=== PATIENT | female | born 1940 | race Caucasian/White ===

== ENCOUNTER → 2021-12-30 12:31 | Outpatient (BNVA) | payer MEDICARE, SELFPAY | PROVIDERS: PCP Family Medicine; Visit Provider Internal Medicine | DX: M45.9 Ankylosing spondylitis of unspecified sites in spine (principal); L40.9 Psoriasis, unspecified; M16.9 Osteoarthritis of hip, unspecified; M81.0 Age-related osteoporosis without current pathological fracture | CPT/HCPCS: 36415; 72100; 72202; 73560; 80053; 82550; 85025; 85651; 86140; 86160; 86162; 86235; 86255; 86376; 99204 ==

== ENCOUNTER → 2022-02-09 09:22 | Outpatient (BNVA) | payer MEDICARE, SELFPAY | PROVIDERS: PCP Family Medicine; Referring Provider Internal Medicine; Visit Provider Anesthesiology Pain Medicine | DX: M16.10 Unilateral primary osteoarthritis, unspecified hip (principal); M25.551 Pain in right hip; M25.552 Pain in left hip; M79.604 Pain in right leg; M79.605 Pain in left leg | CPT/HCPCS: 99204 ==

== ENCOUNTER → 2022-03-04 13:57 | Outpatient (BNVA) | payer MEDICARE, SELFPAY | PROVIDERS: PCP Family Medicine; Visit Provider Anesthesiology Pain Medicine | DX: M16.12 Unilateral primary osteoarthritis, left hip (principal) | CPT/HCPCS: 20610; 77002; J1030; J3490 ==

== ENCOUNTER → 2022-03-31 11:05 | Outpatient (BNVA) | payer MEDICARE, SELFPAY | PROVIDERS: PCP Family Medicine; Visit Provider Anesthesiology Pain Medicine | DX: M25.551 Pain in right hip (principal); M16.12 Unilateral primary osteoarthritis, left hip; I48.91 Unspecified atrial fibrillation; Z95.0 Presence of cardiac pacemaker; M45.9 Ankylosing spondylitis of unspecified sites in spine; I10 Essential (primary) hypertension | CPT/HCPCS: 99204; 99212 ==

== ENCOUNTER → 2022-05-13 13:15 | Outpatient (BNVA) | payer MEDICARE, SELFPAY | PROVIDERS: PCP Family Medicine; Visit Provider Specialist | DX: M16.12 Unilateral primary osteoarthritis, left hip (principal) | CPT/HCPCS: 73502; 99205 ==

== ENCOUNTER → 2022-06-15 14:27 | Outpatient (BNVA) | payer MEDICARE, SELFPAY | PROVIDERS: PCP Family Medicine; Visit Provider Specialist | DX: M16.12 Unilateral primary osteoarthritis, left hip (principal); Z01.818 Encounter for other preprocedural examination | CPT/HCPCS: 99214 ==

== ENCOUNTER → 2022-06-22 10:24 | Outpatient (BNVA) | payer MEDICARE, SELFPAY | PROVIDERS: PCP Family Medicine; Referring Provider Specialist; Visit Provider Clinical Nurse Specialist Adult Health | DX: Z01.818 Encounter for other preprocedural examination (principal) | CPT/HCPCS: 80053; 85025 ==

== ENCOUNTER 2022-06-24 13:35 | Outpatient (CLI) | payer MEDICARE, SELFPAY | END 2022-06-24 13:36 | disposition home or self-care (01) | LOC: RT 07-01 13:36 | PROVIDERS: PCP Family Medicine; Visit Provider Specialist | DX: Z01.818 Encounter for other preprocedural examination (principal) | CPT/HCPCS: 93005 ==

== ENCOUNTER 2022-06-30 16:42 | Observation (INO) | payer MEDICARE, SELFPAY ==
--- NOTE | 2022-06-24 11:27 | P.ANESASSM_ITS ---
Pre-Anesthetic Assessment Height/Weight: Height 1.7 m Weight 65.771 kg Operation Date: 06/30/22 07:00 Proposed Procedures p LEFT TOTAL HIP ARTHROPLASTY 97416 M16.9(Left) - Selam Masters MD Familial anesthetic complications: None Was Beta Ira taken within 24 hours: Yes Was Clonidine taken within 24 hours: N/A Last intake: > 8hrs Social No alcohol and No tobacco Exam alert, oriented x 3, clear to auscultation bilaterally and regular rate & rhythm Airway Mallampati: Class II Dentition: other (crowns) CV/HEM Atrial Fibrillation, Hypertension and None reported (pacemaker) [facility] [place] ankylosing spondylitis Anesthetic Plan ASA status: 3 Anesthesia: Regional (specify below) (spinal) Risk of > 500 ml blood loss (7ml/kg in children): No Medications/Allergies Home Medications Medication Instructions Recorded Confirmed Last Taken Type acetaminophen 500 mg capsule 500 mg PO Q6H PRN Pain 12/30/21 06/24/22 06/24/22 History hydrochlorothiazide 12.5 mg capsule 12.5 mg PO DAILY 12/30/21 06/24/22 06/24/22 History magnesium oxide 400 mg PO DAILY 12/30/21 06/24/22 06/24/22 History metoprolol succinate 50 mg 50 mg PO DAILY 12/30/21 06/24/22 06/24/22 History tablet,extended release 24 hr piroxicam 20 mg capsule 20 mg PO DAILY 12/30/21 06/24/22 06/24/22 History tizanidine 6 mg capsule 6 mg PO BID PRN Allergic Reaction 12/30/21 06/24/22 Unknown History lisinopril 2.5 mg tablet 5 mg PO DAILY #180 tabs 04/14/22 06/24/22 06/24/22 Rx amlodipine 10 mg tablet 10 mg PO DAILY PRN high blood 06/22/22 06/24/22 06/24/22 History pressure atorvastatin 20 mg tablet 20 mg PO DAILY 06/22/22 06/24/22 06/24/22 History clonidine 0.3 mg/24 hr weekly 1 patch transdermal DAILY 06/22/22 06/24/22 06/24/22 History transdermal patch ([id number]) Allergies Allergy/AdvReac Type Severity Reaction Status Date / Time codeine Allergy Mild ALGY-Rash Verified 06/24/22 10:50 ibuprofen [From Advil] Allergy Mild Unknown Verified 06/24/22 10:50 Penicillins Allergy Mild ALGY-Rash Verified 06/24/22 10:50 ivp dye Allergy Unknown Uncoded 06/22/22 09:47 [facility] Anesthesia Medical History A-fib Ankylosing spondylitis Benign essential HTN Debility Primary osteoarthritis of left hip Surgical History History of partial hysterectomy Hx of appendectomy Hx of cholecystectomy Presence of permanent cardiac pacemaker Family History Father Hypertension Diabetes Mother Hypertension Hyperlipidemia Grandmother Cancer Denies family history of CAD (coronary artery disease) Clotting disorder Dementia Psychiatric illness Chronic kidney disease (CKD) Suicide Anesthesia complication Bleeding disorder Family history of premature coronary artery disease Lung disease Stroke Social History Smoking and tobacco status: never smoked Alcohol intake: never Substance/Drug Use: never Data Anesthesia Cardiac Studies: No Data to Display
--- NOTE | 2022-06-24 11:34 | ECG_ITS ---
[facility] Test Date: 2022-06-24 Pat Name: Billie Chicas Department: Room: Gender: Female Undercover Cop: : 1940 Requested By: Selam Masters Order Number: [id number] Soledad MD: Ajay Davenport M.D. Measurements Intervals [place] Rate: 68 P: 155 NC: 223 QRS: 57 QRSD: 90 T: 48 QT: 393 QTc: 419 Interpretive Statements ELECTRONIC ATRIAL PACEMAKER NONSPECIFIC T-WAVE ABNORMALITY ABNORMAL RHYTHM ECG No previous ECG available for comparison Electronically Signed On 06-24-2022 14:25:52 CDT by Ajay Davenport M.D. [id number]
[2022-06-24 12:58] LABS: Add Urine Microscopic? YES; Bilirubin Urine Neg (Negative); Blood Urine Neg (Negative); Glucose Urine UA Norm (Normal); Ketones Urine Negative (Negative); Leukocyte Esterase Urine 2+ (Negative); Nitrate Urine Positive (Negative); Protein Urine Neg (Negative); Urine Appearance Cloudy (CLEAR); Urine Color Yellow (Yellow); Urobilinogen Urine Neg (Negative); pH Urine 5 (5-7)
[2022-06-24 12:59] LABS: Add Urine Culture? Yes; Bacteria Urine 2+ /hpf; Squamous Epithelial Cell Urine 0-4 /hpf (0-5); WBC Urine >100 /hpf (0-5)
[2022-06-30] VITALS (16 sets, daily range): BP systolic 111–193; BP diastolic 60–81; PULSE 60–95; RESP 10–20; TEMP 36.2–36.8; O2SAT 90–100
[2022-06-30] MEDS: sodium chloride 0.9% 1,000 ML 30 ML IV (12:15)
[2022-06-30] MEDS: CELEcoxib 200 mg Capsule 400 MG PO (12:24)
[2022-06-30] MEDS: gabapentin 300 mg Capsule PO (12:24)
[2022-06-30] MEDS: acetaminophen 1,000 MG/100 ML PIGGYBACK 400 MG IV ×2 (12:29→18:10)
--- NOTE | 2022-06-30 12:39 | P.ANESUD_ITS ---
Pre-Anesthetic Update Pre-Anesthetic Assessment: Date of Surgery/Procedure: 06/30/22 Preop Lennie gnosis: Primary osteoarthritis left hip Proposed Procedure: Operation Date: 06/30/22 13:45 Proposed Procedures p LEFT TOTAL HIP ARTHROPLASTY 56580 M16.9(Left) - Selam Masters MD Any changes to Pre-Anesthetic Assessment?: No Last Intake: Intake Last Liquid Date 06/30/22 Last Liquid Time 06:00 Last Solid Date 06/29/22 Last Solid Time 19:00 Vitals: Temperature 97.7 F 06/30/22 12:08 Temperature Source Temporal Artery S can 06/30/22 12:08 Pulse Rate 60 06/30/22 12:08 Respiratory Rate 18 06/30/22 12:08 Blood Pressure 157/67 06/30/22 12:08 Blood Pressure Megan n 97 06/30/22 12:08 Pulse Oximetry 97 06/30/22 12:08 Oxygen Delivery Me thod Room Air 06/30/22 12:08 Exam: Pre-Anes Outpt Exam: alert, oriented x 3, clear to auscultation bilaterally and regular rate & rhythm Cardiac Studies: No Data to Display
--- NOTE | 2022-06-30 12:41 | P.HPUD_ITS ---
Surgery/Procedure H&P Update DATE OF PROCEDURE: June 30, 2022 DATE H&P PERFORMED: 06/15/22 H&P UPDATE INFORMATION: I have reviewed H&P completed within last 30 days, I have examined patient prior to procedure, No changes to prior documentation and H&P is in [facility] [place] [facility] EMR on date indicated PREOP DIAGNOSIS: Primary osteoarthritis left hip PLANNED PROCEDURE: Operation Date: 06/30/22 13:45 Proposed Procedures p LEFT TOTAL HIP ARTHROPLASTY 58570 M16.9(Left) - Selam Masters MD Related Problem List Diagnoses (1) Primary osteoarthritis of left hip:
[2022-06-30] MEDS: cefTRIAXone 2,000 MG in sodium chloride 0.9% (plus) 50 ML 100 MG IV (12:48)
[2022-06-30] MEDS: ceFAZolin 2,000 MG in sodium chloride 0.9% (plus) 50 ML 100 MG IV ×2 (12:51→18:32)
[2022-06-30 12:54] LABS: Bilirubin Urine Neg (Negative); Blood Urine Neg (Negative); Glucose Urine UA Norm (Normal); Ketones Urine Negative (Negative); Leukocyte Esterase Urine 1+ (Negative); Nitrate Urine Positive (Negative); Protein Urine Neg (Negative); RBC Urine 0-4 /hpf (0-2); Specific Gravity, Urine 1.015 (1.005-1.030); Urine Appearance Cloudy (CLEAR); Urine Color Yellow (Yellow); Urobilinogen Urine Norm (Negative); pH Urine 5 (5-7)
[2022-06-30 12:55] LABS: Add Urine Culture? No; Bacteria Urine 3+ /hpf; Mucus Urine TRACE /hpf; Squamous Epithelial Cell Urine 0-4 /hpf (0-5); WBC Urine 15-25 /hpf (0-5)
--- NOTE | 2022-06-30 13:20 | PC.NURSE ---
patient arrived today for surgery. Talked with Dr. Masters regarding patients urine results during her pre op visit. New orders given to place leon and send urine for UA and Culture. Also given an order to give rocephin in preoop with the already ordered ancef. Placed catheter per mobile battery technician. Patient tolerated well. Sent urine speciman to lab. Dr. Masters talked with patient regarding prior urine results and plan to proceed with surgery.
[2022-06-30] MEDS: ceFAZolin 1,000 mg SDV 1000 MG IRRIGATION (13:54)
[2022-06-30] MEDS: vancomycin 1,000 MG SDV 1000 MG XX (13:54)
--- NOTE | 2022-06-30 16:02 | XRR_ITS ---
PROCEDURE INFORMATION: Exam: XR Pelvis Exam date and time: 06/30/2022 3:07 PM Age: 81 years old Clinical indication: Device placement; Other: Left emily; Prior surgery; Surgery date: Post-operative (0-2 days); Additional info: S/P left emily, low ap pelvis TECHNIQUE: Imaging protocol: Radiologic exam of the pelvis. Views: 1 or 2 view. COMPARISON: CR XR hip LT 2-3V wo/w pel* [id number] 05/13/2022 1:18 PM FINDINGS: Bones/joints: Metallic left hip arthroplasty is present in good position. A no acute bony abnormalities seen. No acute fracture. Soft tissues: Postoperative soft tissue subcutaneous emphysema is seen in the left hip XR/XR pelvis 1-2V* [id number] IMPRESSION: 1. Metallic left hip arthroplasty in good position. 2. Postoperative soft tissue changes left hip 3. Otherwise No acute findings.
--- NOTE | 2022-06-30 16:09 | PC.NURSE ---
Patient awake. LMA removed without incident
--- NOTE | 2022-06-30 16:26 | PC.NURSE ---
patient arrived with patch on chest. stated it was a clonidine patch
--- NOTE | 2022-06-30 16:33 | ANE.PACU2 ---
Inpatient post-anesthesia follow up: Airway intact: Yes Vital signs: Temperature 97.2 F Pulse Rate 83 Respiratory Rate 13 Blood Pressure 183/79 Pulse Oximetry 94 Oxygen Delivery Me thod Room Air Oxygen Flow Rate 8 Fraction of Inspir ed Oxygen Hydration adequate: Yes Nausea and vomiting: No Pain level: 3 Mental status: Baseline
[2022-06-30] MEDS: fentaNYL 50 mcg/mL INJ 2mL IVP (16:35)
[2022-06-30] MEDS: metoprolol tartrate 1 mg/1 mL SDV 5 mL 5 MG IVP (16:36)
--- NOTE | 2022-06-30 16:37 | PM.OP ---
Operative Report Date of procedure: June 30, 2022 Pre-op diagnosis: Severe degenerative osteoarthritis left hip with flexion contracture Post-op diagnosis: Severe degenerative osteoarthritis left hip with flexion and adduction contracture Post-op findings: Severe degenerative osteoarthritis left hip with 45 degree flexion contracture, fixed, and adduction contracture. Cystic changes within the acetabulum and femoral head. Significant shortening of the left lower extremity. Complicated by diagnosis of ankylosing spondylitis Procedure done: Left total hip arthroplasty with adductor tenotomy Implants: The Estimize total hip system with the following implants: A 52 mm by E Trident II solid back acetabular shell, an MDM cementless liner 42 mm inner diameter by E alpha code and Accolade II size 5 with 127 degree neck angle hip stem with a 28 mm outer diameter +0 mm neck offset femoral head and a taoist X3 insert size 42E mm outer diameter by 28 mm inner diameter Pathology: none sent Surgeon: Selam Masters Implementation Specialist Payroll: [facility] operating room technicians Anesthesia: General (LMA, ASA 3 following failed attempt at spinal anesthesia) Estimated blood loss (mL): 250 IV fluids (mL): 1,100 Urine output (mL): 250 Complications: None Findings: Severe flexion contracture and adduction contracture of left hip with inability to extend hip past 45 degrees of flexion and inability to Abduct hip to neutral Condition: stable Disposition: PACU (Then to floor for postoperative rehabilitation and pain management) Brief History: This is a 81 year old female patient here today for evaluation of left total hip arthroplasty. Patient states that the hip has been causing her pain for years. Patient states that she had been on arthritis medication for years when they took her off the medication in 2014.? Initially, she was doing ok; however, three years later she began having increased pain to her groin area. Patient was placed back on the medication (feldene) by Dr. Alonso. Patient states that she feels that the feldene is helping. Patient states she has cracking when she ambulates, and currently, she is using a wheelchair for ambulation. Patient has had injections from Dr. Cuevas and does feel that it helped some. Patient does not walk due to concern of pain and that she would fall. Patient was seen in the office, and after discussion, we elected to proceed with total hip arthroplasty. Risks and complications were discussed with her in detail. Questions were answered and consents were signed. Procedure: Patient was brought to the operating theater.? She was transferred to the operating room table.? The patient had attempted spinal anesthetic with conversion to general anesthetic per LMA, ASA 3.? Following administration of adequate anesthesia, the patient was placed in full lateral position and held in position with a pegboard.? Positioning was very difficult secondary to the patient's flexion contracture and spinal deformity due to her diagnosis of ankylosing spondylitis. The patient's left lower extremity was then prepped and draped in usual fashion utilizing DuraPrep.? It was draped free.? Following prepping and draping, a surgical pause was performed. At the time of surgical pause, we identified the site and side of surgery.? We also identified the patient and preoperative surgical markings.? Confirmation was made of equipment availability.? Additionally, the patient's preoperative IV antibiotic, Ancef 2 g, was confirmed as being given in a timely fashion and being the appropriate antibiotic.? Patient was also given ceftriaxone preoperatively to treat her urine which demonstrated positive leukocyte esterase. Given the patient's physical debility and inability to care for herself, it was felt that we would not be able to clear her urine without IV antibiotics. Discussion was undertaken with the patient and family regarding increased risks associated with proceeding with the surgery, and we elected to proceed. The patient was given TXA preoperatively and will be given an additional dose later this evening. Positioning was very difficult secondary to the patient's ankylosing spondylitis. Also, she had the flexion contracture which did not allow the hip to be extended past 45 degrees of flexion. She had an adduction contracture as well which limited mobility of the hip during the prepping and draping process. Once incision was made and attempts to enter the hip were made, the positioning also was quite difficult secondary to her severe contractures. Following the surgical pause, an incision was made centering over the patient's greater trochanter continuing proximally and distally as necessary to allow access to the hip joint.? Dissection continued through skin and soft tissues using a scalpel, and hemostasis was obtained using electrocautery. The tensor fascia cristino was identified and incised longitudinally.? Sciatic nerve was identified and protected throughout the surgical procedure.? A Charnley U retractor was placed after the tensor fascia cristino had been incised longitudinally, and the sciatic nerve had been identified.? The piriformis muscle was identified and tagged. Piriformis muscle along with the remaining short external rotators were then incised from the posterior aspect of the hip joint. These were retracted posteriorly. ? The capsule was entered in a T-type fashion with the edges being tagged.? The hip was then dislocated. Following hip dislocation, a femoral neck osteotomy was accomplished in the appropriate position. We then evaluated the acetabulum.? We noted we were able to deepen the acetabulum. Following femoral neck osteotomy, the femur was retracted anteriorly.? Soft tissues were retracted and the labrum was removed.? Soft tissues were removed from within the acetabulum prior to the reaming process.? We then began reaming.? We deepened the acetabulum utilizing a smaller reamer.? Evaluation of the acetabulum was accomplished, and we were able to ream to 51 mm to allow for a size 52 mm acetabular shell. There were cystic areas within the acetabulum, and one large cyst superiorly. For this reason, reamings were taken and were reversed reamed into the defects. The acetabular component was impacted into position.?The cup was noted to seat nicely and had good fixation upon impact.? The MDM cementless liner was impacted into position and care was taken to assure that it completely seated.? Attention was directed to the proximal femur.? The proximal femur was lifted out of the wound with difficulty.? A canal finder was passed, and we then used the reamer to lateralize.? We then began broaching. We broached sequentially, and initially, trial reductions were accomplished with a size 5 stem.? Prior to placement of the size 5 stem, calcar reamer was used to resect the proximal calcar.? With the size 5 broach, a trial reduction was accomplished initially with a size -4 mm head offset and a 28 mm outer diameter.? The patient was stable with this construct, but it was felt that as she mobilized soft tissues, this would likely be too loose. Therefore, we placed a +0 mm neck offset femoral head, and it was not felt that we had significantly over tighten the hip. The hip remained tight secondary to the contractures which were present preoperatively. At this time, the decision was also made to proceed with an abductor release. This was to be accomplished after closure of the incision for the total hip. Therefore, trial components were removed after the hip was dislocated.? The size 5 Accolade II 127 degree neck angle hip stem was impacted into position without difficulty and onto this was placed a +0 mm offset by 28 mm outer diameter femoral head inside of the MDM size 42E insert with a 28 mm inner diameter.? With this construct, we had good stability without aggravation of the patient's contractures.? The stem was noted to seat nicely prior to placement of the femoral head.? The wound was copiously irrigated with Betadine.? At this time, with all components in appropriate position, the hip was reduced.? Following reduction of the prosthesis once again, we confirmed the stability of the hip.? It had been noted that there was significant shortening of this lower extremity preoperatively, and it was felt that we had restored some of the length without overtightening the hip. Being satisfied with the prosthesis, attention was directed to closure.? Closure was accomplished with 0 Vicryl in the capsular tissues.? Piriformis was reattached with 0 Vicryl as well.? Tensor fascia cristino was closed with 0 Vicryl in an interrupted fashion.? The subcutaneous tissues were closed with 2 deeper 0 Vicryl suture followed by 2-0 Monocryl.? Vancomycin powder and a Gelfoam thrombin mixture was placed into the wound as well.? The skin was closed with 3-0 Monocryl followed by Dermabond, Prineo, and OpSite.? The patient was placed in an abduction pillow.? She was returned the Recovery Room in a satisfactory condition and will be discharged to the floor for postoperative rehabilitation and pain management.? There were no complications. Related Problem List Diagnoses (1) Primary osteoarthritis of left hip: (2) Flexion contracture of left hip: (3) Debility: (4) Ankylosing spondylitis:
[2022-06-30] MEDS: chlorhexidine gluconate 0.12% Btl 473 mL 30 ML MUCOUS MEM ×2 (18:09→20:33)
[2022-06-30] MEDS: iron polysaccharide complex 150 mg Capsule PO (18:10)
[2022-06-30] MEDS: sennosides-docusate Tablet 2 TAB PO (18:10)
[2022-06-30] MEDS: calcium carbonate 500 mg Chew Tablet 1000 MG PO (18:10)
[2022-06-30] MEDS: mupirocin oint 22 gm 1 APPLIC NASAL (18:11)
[2022-07-01] VITALS (12 sets, daily range): BP systolic 114–190; BP diastolic 58–82; PULSE 61–67; RESP 15–18; TEMP 36.4–36.6; O2SAT 94–100
[2022-07-01] MEDS: acetaminophen 1,000 MG/100 ML PIGGYBACK 400 MG IV ×2 (01:52→09:44)
[2022-07-01] MEDS: oxyCODONE 5 mg IR Tab/Cap PO ×5 (01:55→20:58)
[2022-07-01] MEDS: ceFAZolin 2,000 MG in sodium chloride 0.9% (plus) 50 ML 100 MG IV ×2 (02:32→12:23)
[2022-07-01 05:47] LABS: Basophils % 0.1 %; Eosinophils % 0.1 %; Hematocrit 33.2 % (37.0-47.0); Hemoglobin 10.6 g/dL (11.5-15.3); Lymphocytes # 0.9 10^3/uL (0.8-4.8); Lymphocytes % 6.8 %; Mean Corpuscular HGB Conc 31.9 g/dL (30.0-36.0); Mean Corpuscular Hemoglobin 29.1 pg (28.0-34.0); Mean Corpuscular Volume 91.2 fl (81-99); Monocytes # 1.4 10^3/uL (0.2-0.9); Monocytes % 10.3 %; Neutrophils # 10.97 10^3/uL (1.8-7.7); Neutrophils % 82.3 %; Nucleated Red Blood Cells % 0 %; Platelet Count 290 10^3/cmm (130-400); Red Blood Count 3.64 10^6/uL (4.1-5.3); Red Cell Distribution Width 12.8 % (12.1-15.1); White Blood Count 13.3 10^3/uL (4.0-10.0)
[2022-07-01 06:11] LABS: Anion Gap 12.2 (5-19); Blood Urea Nitrogen 33 mg/dL (8-23); Calcium 9.7 mg/dL (8.5-10.5); Carbon Dioxide 28 mmol/L (22-29); Chloride 103 mmol/L (98-107); Glucose 116 mg/dL (65-115); Osmolality Calculated 296 mOsm/kg (285-295); Potassium 4.2 mmol/L (3.5-5.1); Sodium 139 mmol/L (136-145)
[2022-07-01] MEDS: tizanidine 4 mg Tablet 6 MG PO ×2 (06:18→20:58)
[2022-07-01] MEDS: lisinopril 5 mg Tablet PO (08:31)
[2022-07-01] MEDS: metoprolol succinate ER (24 HR) 50 mg Tablet PO (08:31)
[2022-07-01] MEDS: sennosides-docusate Tablet 2 TAB PO ×2 (08:31→17:06)
[2022-07-01] MEDS: aspirin 325 mg EC Tablet PO (08:31)
[2022-07-01] MEDS: iron polysaccharide complex 150 mg Capsule PO ×2 (08:31→17:06)
[2022-07-01] MEDS: amlodipine 10 mg Tablet PO (08:31)
[2022-07-01] MEDS: atorvastatin 40 mg Tablet 20 MG PO (08:31)
[2022-07-01] MEDS: multivitamin therapeutic Tablet 1 TAB PO (08:31)
[2022-07-01] MEDS: cholecalciferol (vitamin D3) 1,000 unit Tablet 1000 UNIT PO (08:31)
[2022-07-01] MEDS: calcium carbonate 500 mg Chew Tablet 1000 MG PO ×2 (08:31→17:06)
[2022-07-01] MEDS: hydroCHLOROthiazide 25 mg Tablet 12.5 MG PO (08:32)
[2022-07-01] MEDS: mupirocin oint 22 gm 1 APPLIC NASAL ×2 (09:44→17:09)
[2022-07-01] MEDS: chlorhexidine gluconate 0.12% Btl 473 mL 30 ML MUCOUS MEM ×3 (09:44→20:52)
[2022-07-01] MEDS: cloNIDine 0.3 mg/24 hr Patch 1 PATCH TRANSDERMA (12:24)
--- NOTE | 2022-07-01 13:29 | PM.PN ---
Subjective Subjective: The patient is up in a chair in her room. She is doing well without complaints. She notes her pain is not significantly different than it was preoperatively. Medications: Reviewed: Yes Vitals/I&O/Wt Last Vital Signs Temp 97.7 F 07/01/22 07:41 Pulse 67 07/01/22 12:24 Resp 18 07/01/22 12:23 BP 145/74 07/01/22 12:24 Pulse Ox 94 07/01/22 11:27 O2 Del Method Room Air 07/01/22 11:27 O2 Flow Rate 2 07/01/22 04:00 06/30/22 07/01/22 07/01/22 22:59 06:59 14:59 Intake Total 2700 / 2910 390 / 3300 220 / 220 Output Total 1050 / 1050 375 / 1425 Balance 1650 / 1860 15 / 1875 220 / 220 Physical Exam Const: COMMON NORMALS: no acute distress, average body habitus, patient oriented x3 and alert GENERAL APPEARANCE: cooperative and comfortable ORIENTATION/CONSCIOUSNESS: Yes awake HENMT: COMMON NORMALS: normocephalic and atraumatic HEAD & SCALP: normocephalic and atraumatic Eye: GENERAL EYE: appearance normal, both eyes and all related structures Chest: COMMONS NORMALS: normal inspection of the chest Resp: COMMON NORMALS: normal respiratory effort EFFORT & INSPECTION: Yes able to speak in complete sentences and Yes symmetric chest movement Extremity: LEFT LOWER EXTREMITY: Yes hip joint (Dressing is dry and intact.) Left hip: Yes other (No evidence of DVT.) Neuro: COMMON NORMALS: patient oriented x3 SENSORIUM/ORIENTATION: Yes alert Psych: COMMON NORMALS: mental status grossly normal APPEARANCE: Yes grossly normal ATTITUDE: Yes calm and Yes engaged ATTENTION/CONCENTRATION: Yes attention grossly intact Skin: COMMON NORMALS: no rashes or lesions noted GENERAL SKIN EXAM: no rashes or lesions noted Urinary Catheter Management: Spivey: Cath Placed During This Visit: yes, but has since been removed by the nurse Reason for Continuing Indwelling Catheter: Decision to DC Catheter Date Urinary Catheter Removed: 07/01/22 Time Urinary Catheter Discontinued: 06:27 Data 07/01/22 05:01 07/01/22 05:01 Micro: Microbiology 06/30/22 12:00 Urine Culture - Preliminary Urine Catheterized Gram Negative Rods A&P Assessment and plan (1) Status post total hip replacement, left: Patient is doing well following total hip arthroplasty, but due to her ankylosing spondylitis as well as her severe disability prior to her hip replacement, she will require extended hospital stay as well as prison. Patient is doing well and is up in a chair. She notes pain level is about the same as it was preoperatively. She has been using a wheelchair as she was unable to ambulate at all. At the time of surgery, she had significant flexion contracture of the hip which was not correctable even when the patient was asleep. She also had significant adduction contracture. Patient is agreeable to discharge to prison. We will await approval from insurance. Additionally, patient has gram-negative rods from her urine culture, we will place her on Bactrim. (2) Primary osteoarthritis of left hip: (3) Debility: (4) Ankylosing spondylitis: Attestations Medical Necessity Statement*: Patient remains in hospital following total hip arthroplasty for postoperative rehabilitation. She will require extended stay secondary to preoperative status with significant debility. Coding Level of Care Code Acute Code for Chg Fwd Diagnoses Status post total hip replacement, left Z96.642 Primary osteoarthritis of left hip M16.12 Debility R53.81 Ankylosing spondylitis M45.9
[2022-07-01] MEDS: acetaminophen 500 mg Tablet 1000 MG PO (17:05)
[2022-07-02] VITALS (11 sets, daily range): BP systolic 110–170; BP diastolic 58–70; PULSE 61–76; RESP 16–19; TEMP 36.4–37.1; O2SAT 91–96
[2022-07-02] MEDS: oxyCODONE 5 mg IR Tab/Cap PO ×4 (04:43→20:16)
[2022-07-02] MEDS: calcium carbonate 500 mg Chew Tablet 1000 MG PO ×2 (08:00→17:33)
[2022-07-02] MEDS: metoprolol succinate ER (24 HR) 50 mg Tablet PO (08:01)
[2022-07-02] MEDS: hydroCHLOROthiazide 25 mg Tablet 12.5 MG PO (08:01)
[2022-07-02] MEDS: cholecalciferol (vitamin D3) 1,000 unit Tablet 1000 UNIT PO (08:01)
[2022-07-02] MEDS: lisinopril 5 mg Tablet PO (08:01)
[2022-07-02] MEDS: sennosides-docusate Tablet 2 TAB PO ×2 (08:01→17:33)
[2022-07-02] MEDS: iron polysaccharide complex 150 mg Capsule PO ×2 (08:02→17:33)
[2022-07-02] MEDS: amlodipine 10 mg Tablet PO (08:02)
[2022-07-02] MEDS: acetaminophen 500 mg Tablet 1000 MG PO ×2 (08:02→17:41)
[2022-07-02] MEDS: multivitamin therapeutic Tablet 1 TAB PO (08:03)
[2022-07-02] MEDS: atorvastatin 40 mg Tablet 20 MG PO (08:19)
[2022-07-02] MEDS: aspirin 325 mg EC Tablet PO (08:19)
[2022-07-02] MEDS: mupirocin oint 22 gm 1 APPLIC NASAL ×2 (08:20→17:34)
[2022-07-02] MEDS: chlorhexidine gluconate 0.12% Btl 473 mL 30 ML MUCOUS MEM ×4 (08:20→20:19)
[2022-07-02] MEDS: cloNIDine 0.3 mg/24 hr Patch 1 PATCH TRANSDERMA (10:14)
[2022-07-02] MEDS: sulfamethoxazole-trimeth DS 160-800 mg Tablet 1 TAB PO ×2 (10:15→17:33)
--- NOTE | 2022-07-02 18:44 | P.PN_ITS ---
Subjective Subjective: The patient is seen in her room. She has been getting up with physical therapy and is doing quite well. She is still requiring assistance, and will require long-term at the time of discharge. She is interested in [facility]. Medications: Reviewed: Yes Vitals/I&O/Wt Last Vital Signs Temp 97.8 F 07/02/22 15:52 Pulse 70 07/02/22 15:52 Resp 18 07/02/22 15:52 BP 160/62 07/02/22 15:52 Pulse Ox 91 07/02/22 15:52 O2 Del Method Room Air 07/02/22 15:52 O2 Flow Rate 2 07/01/22 20:00 07/02/22 07/02/22 07/02/22 06:59 14:59 22:59 Intake Total 120 / 990 960 / 960 480 / 1440 Balance 120 / 990 960 / 960 480 / 1440 Physical Exam Const: COMMON NORMALS: no acute distress, patient oriented x3 and alert; limitations (Spinal issues secondary to ankylosing spondylitis) GENERAL APPEARANCE: cooperative and comfortable ORIENTATION/CONSCIOUSNESS: Yes awake HENMT: COMMON NORMALS: normocephalic and atraumatic HEAD & SCALP: normocephalic and atraumatic Eye: GENERAL EYE: appearance normal, both eyes and all related structures Resp: COMMON NORMALS: normal respiratory effort EFFORT & INSPECTION: Yes able to speak in complete sentences and Yes symmetric chest movement Extremity: LEFT LOWER EXTREMITY: Yes hip joint (Dressing is dry and intact with no swelling) Left hip: Yes palpation (No tenderness), Yes ROM (Not evaluated) and Yes neurovascular exam (Intact with no evidence of DVT) Neuro: COMMON NORMALS: patient oriented x3 SENSORIUM/ORIENTATION: Yes alert Psych: COMMON NORMALS: mental status grossly normal APPEARANCE: Yes grossly normal ATTITUDE: Yes calm and Yes engaged ATTENTION/CONCENTRATION: Yes attention grossly intact Skin: COMMON NORMALS: no rashes or lesions noted GENERAL SKIN EXAM: no rashes or lesions noted Urinary Catheter Management: Spivey: Cath Placed During This Visit: yes, but has since been removed by the nurse Reason for Continuing Indwelling Catheter: Decision to DC Catheter Date Urinary Catheter Removed: 07/01/22 Time Urinary Catheter Discontinued: 06:27 Data 07/01/22 05:01 07/01/22 05:01 A&P Assessment and plan (1) Status post total hip replacement, left: Patient is doing well following total hip arthroplasty, but due to her ankylosing spondylitis as well as her severe disability prior to her hip replacement, she has required extended hospital stay as well as long-term at time of discharge from the hospital. Patient is doing well and is up in a chair. She has been working with physical therapy, and they are working on ambulation. She notes pain level is about the same as it was preoperatively. She has been using a wheelchair as she was unable to ambulate at all. At the time of surgery, she had significant flexion contracture of the hip which was not correctable even when the patient was asleep. She also had significant adduction contracture. Patient is agreeable to discharge to long-term. We will await approval from insurance. Additionally, patient has gram-negative rods from her urine culture, we will place her on Bactrim. (2) Primary osteoarthritis of left hip: (3) Debility: (4) Ankylosing spondylitis: Attestations Medical Necessity Statement*: Patient requires ongoing inpatient care following left total hip arthroplasty due to medical comorbidities such as ankylosing spondylitis and significant deconditioning Coding Level of Care Code Acute Code for Chg Fwd Diagnoses Status post total hip replacement, left Z96.642 Primary osteoarthritis of left hip M16.12 Debility R53.81 Ankylosing spondylitis M45.9
[2022-07-02] MEDS: tizanidine 4 mg Tablet 6 MG PO (20:16)
[2022-07-03] VITALS: BP 108/74; PULSE 80; RESP 16; TEMP 36.9; O2SAT 97
[2022-07-03] MEDS: acetaminophen 500 mg Tablet 1000 MG PO ×2 (03:32→09:33)
[2022-07-03 05:02] VITALS: BP 186/67; PULSE 65; RESP 18; TEMP 37.1; O2SAT 94
[2022-07-03 08:00] VITALS: BP 152/75; PULSE 63; RESP 16; TEMP 36.8; O2SAT 94
[2022-07-03] MEDS: calcium carbonate 500 mg Chew Tablet 1000 MG PO (08:04)
[2022-07-03] MEDS: sennosides-docusate Tablet 2 TAB PO (08:04)
[2022-07-03] MEDS: lisinopril 5 mg Tablet PO (08:04)
[2022-07-03] MEDS: amlodipine 10 mg Tablet PO (08:04)
[2022-07-03] MEDS: cholecalciferol (vitamin D3) 1,000 unit Tablet 1000 UNIT PO (08:04)
[2022-07-03] MEDS: aspirin 325 mg EC Tablet PO (08:04)
[2022-07-03] MEDS: sulfamethoxazole-trimeth DS 160-800 mg Tablet 1 TAB PO (08:04)
[2022-07-03 08:05] VITALS: RESP 18
[2022-07-03] MEDS: metoprolol succinate ER (24 HR) 50 mg Tablet PO (08:05)
[2022-07-03] MEDS: oxyCODONE 5 mg IR Tab/Cap PO (08:05)
[2022-07-03] MEDS: iron polysaccharide complex 150 mg Capsule PO (08:05)
[2022-07-03] MEDS: hydroCHLOROthiazide 25 mg Tablet 12.5 MG PO (08:07)
[2022-07-03] MEDS: atorvastatin 40 mg Tablet 20 MG PO (08:07)
[2022-07-03] MEDS: chlorhexidine gluconate 0.12% Btl 473 mL 30 ML MUCOUS MEM (08:08)
[2022-07-03] MEDS: mupirocin oint 22 gm 1 APPLIC NASAL (08:08)
[2022-07-03] MEDS: multivitamin therapeutic Tablet 1 TAB PO (08:18)
[2022-07-03] MEDS: cloNIDine 0.3 mg/24 hr Patch 1 PATCH TRANSDERMA (09:33)
[2022-07-03 11:27] LABS: SARS Covid-2 Antigen Negative (Negative)
[2022-07-03 11:32] VITALS: BP 142/85; PULSE 62; RESP 16; TEMP 37.3; O2SAT 95
--- NOTE | 2022-07-03 14:46 | PM.OP ---
Operative Report Date of procedure: July 03, 2022 Pre-op diagnosis: Preop Diagnosis Primary osteoarthritis left hip Severe degenerative osteoarthritis left hip with flexion contracture
--- NOTE | 2022-07-03 14:47 | PM.DCS ---
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 Cystic changes within the acetabulum and femoral head. Significant shortening of the left lower extremity. Complicated by diagnosis of ankylosing spondylitis Procedure done: Left total hip arthroplasty with adductor tenotomy Implants: The [employer] total hip system with the following implants: A 52 mm by E Trident II solid back acetabular shell, an MDM cementless liner 42 mm inner diameter by E alpha code and Accolade II size 5 with 127 degree neck angle hip stem with a 28 mm outer diameter +0 mm neck offset femoral head and a sikhism X3 insert size 42E mm outer diameter by 28 mm inner diameter (2) Primary osteoarthritis of left hip: Status: Acute (3) Debility: Status: Acute (4) Ankylosing spondylitis: Status: Acute Reason for Visit Reason for Visit: M16.7, 58791 Brief History: This is a 81 year old female patient who presented to the hospital for left total hip arthroplasty. Patient states that the hip has been causing her pain for years. Patient states that she had been on arthritis medication for years, but they took her off the medication in 2014.? Initially, she was doing ok; however, three years later she began having increased pain to her groin area. Patient was placed back on the medication (feldene) by Dr. Alonso. Patient states that she feels that the feldene is helping. Patient states she has cracking when she ambulates, and currently, she is using a wheelchair for ambulation. Patient has had injections from Dr. Cuevas and does feel that it helped some. Patient does not walk due to concern of pain and that she would fall.? Patient was seen in the office, and after discussion, we elected to proceed with total hip arthroplasty.? Risks and complications were discussed with her in detail.? Questions were answered and consents were signed. Hospital Course Hospital Course The patient was admitted to the hospital on June 30, 2022 following same-day surgery for left total hip arthroplasty. Her medical situation was significantly compromised and complex secondary to her diagnosis of ankylosing spondylitis and her inability recently to ambulate at all. The patient also had a fixed flexion contracture of the left hip and significant debility secondary to her inability to ambulate and use of a walker over the past extended period of time. Patient presented initially with bacteria in her urine, but she was treated with ceftriaxone and hospital prior to her surgical procedure as it was felt that we would not be able to clear up the urinary tract infection secondary to the severe flexion and adduction contracture of this hip. Patient was educated as to this concern. Postoperatively, she required inpatient services and subsequently intermediate services secondary to her complex rehabilitation problems. On the day of discharge, she was doing well. She was sitting in a chair. She was excited to be going to intermediate for ongoing improvement. Bactrim will be continued while in intermediate for 14 days. Dressing is to remain intact unless it becomes soiled or there is drainage. She is to follow posterior hip precautions. Physical Exam Const: COMMON NORMALS: no acute distress, patient oriented x3 and alert; limitations (Spinal issues secondary to ankylosing spondylitis) GENERAL APPEARANCE: cooperative and comfortable ORIENTATION/CONSCIOUSNESS: Yes awake HENMT: COMMON NORMALS: normocephalic and atraumatic HEAD & SCALP: normocephalic and atraumatic Eye: GENERAL EYE: appearance normal, both eyes and all related structures Chest: COMMONS NORMALS: normal inspection of the chest Resp: COMMON NORMALS: normal respiratory effort EFFORT & INSPECTION: Yes able to speak in complete sentences and Yes symmetric chest movement Extremity: LEFT LOWER EXTREMITY: Yes hip joint (Dressing is dry and intact and is left in place.) Left hip: Yes neurovascular exam (Intact distally.) Neuro: COMMON NORMALS: patient oriented x3 SENSORIUM/ORIENTATION: Yes alert Psych: COMMON NORMALS: mental status grossly normal APPEARANCE: Yes grossly normal ATTITUDE: Yes calm and Yes engaged ATTENTION/CONCENTRATION: Yes attention grossly intact Skin: COMMON NORMALS: no rashes or lesions noted GENERAL SKIN EXAM: no rashes or lesions noted Urinary Catheter Management: Spivey: Cath Placed During This Visit: yes, but has since been removed by the nurse Reason for Continuing Indwelling Catheter: Decision to DC Catheter Date Urinary Catheter Removed: 07/01/22 Time Urinary Catheter Discontinued: 06:27 Discharge Data Studies Completed and Pending Completed Studies During Hospitalization Category Date Time Status XR pelvis 1-2V* [id number] Routine Exams 06/30/22 16:02 Completed Radiology Impressions Pelvis X-Ray 06/30/22 16:02 IMPRESSION: 1. Metallic left hip arthroplasty in good position. 2. Postoperative soft tissue changes left hip 3. Otherwise No acute findings. Laboratory Results WBC 13.3 10^3/uL (4.0-10.0) H 07/01/22 05:01 RBC 3.64 10^6/uL (4.1-5.3) L 07/01/22 05:01 Hgb 10.6 g/dL (11.5-15.3) L 07/01/22 05:01 Hct 33.2 % (37.0-47.0) L 07/01/22 05:01 MCV 91.2 fl (81-99) 07/01/22 05:01 MCH 29.1 pg (28.0-34.0) 07/01/22 05:01 MCHC 31.9 g/dL (30.0-36.0) 07/01/22 05:01 RDW 12.8 % (12.1-15.1) 07/01/22 05:01 Plt Count 290 10^3/cmm (130-400) 07/01/22 05:01 MPV 10.0 fL (7.4-10.4) 07/01/22 05:01 Neut % (Auto) 82.3 % 07/01/22 05:01 Lymph % (Auto) 6.8 % 07/01/22 05:01 [place] % (Auto) 10.3 % 07/01/22 05:01 Eos % (Auto) 0.1 % 07/01/22 05:01 Baso % (Auto) 0.1 % 07/01/22 05:01 Neut # (Auto) 10.97 10^3/uL (1.8-7.7) H 07/01/22 05:01 Lymph # (Auto) 0.9 10^3/uL (0.8-4.8) 07/01/22 05:01 [place] # (Auto) 1.4 10^3/uL (0.2-0.9) H 07/01/22 05:01 Eos # (Auto) 0.0 10^3/uL (0.0-0.8) 07/01/22 05:01 Baso # (Auto) 0.0 10^3/uL (0.0-0.1) 07/01/22 05:01 Nucleated RBC % (auto) 0 % 07/01/22 05:01 Nucleated RBCs # 0.0 /100WBC 07/01/22 05:01 Sodium 139 mmol/L (136-145) 07/01/22 05:01 Potassium 4.2 mmol/L (3.5-5.1) 07/01/22 05:01 Chloride 103 mmol/L (98-107) 07/01/22 05:01 Carbon Dioxide 28 mmol/L (22-29) 07/01/22 05:01 Anion Gap 12.2 (5-19) 07/01/22 05:01 BUN 33 mg/dL (8-23) H 07/01/22 05:01 Creatinine 1.2 mg/dL (0.5-0.9) H 07/01/22 05:01 GFR Calculation Not Reportable 07/01/22 05:01 Glucose 116 mg/dL (65-115) H 07/01/22 05:01 Calculated Osmolality 296 mOsm/kg (285-295) H 07/01/22 05:01 Calcium 9.7 mg/dL (8.5-10.5) 07/01/22 05:01 Urine Color Yellow (Yellow) 06/30/22 12:00 Urine Appearance Cloudy (CLEAR) A 06/30/22 12:00 Urine pH 5 (5-7) 06/30/22 12:00 Ur Specific [place] 1.015 (1.005-1.030) 06/30/22 12:00 Urine Protein Neg (Negative) 06/30/22 12:00 Urine Glucose (UA) Norm (Normal) 06/30/22 12:00 Urine Ketones Negative (Negative) 06/30/22 12:00 Urine Blood Neg (Negative) 06/30/22 12:00 Urine Nitrate Positive (Negative) H 06/30/22 12:00 Urine Bilirubin Neg (Negative) 06/30/22 12:00 Urine Urobilinogen Norm mg/dL (Negative) 06/30/22 12:00 Ur Leukocyte Esterase 1+ (Negative) H 06/30/22 12:00 Urine RBC 0-4 /hpf (0-2) H 06/30/22 12:00 Urine WBC 15-25 /hpf (0-5) H 06/30/22 12:00 Ur Squamous Epith Cells 0-4 /hpf (0-5) H 06/30/22 12:00 Amorphous Sediment Not Reportable 06/30/22 12:00 Urine Bacteria 3+ /hpf (NONE) H 06/30/22 12:00 Urine Mucus Trace /hpf 06/30/22 12:00 SARS-CoV-2 Ag (Rapid) Negative (Negative) 07/03/22 10:50 Vitals Last Vital Signs Temp 99.1 F 07/03/22 11:32 Pulse 62 07/03/22 11:32 Resp 16 07/03/22 11:32 BP 142/85 07/03/22 11:32 Pulse Ox 95 07/03/22 11:32 O2 Del Method Room Air 07/02/22 15:52 O2 Flow Rate 2 07/03/22 08:00 Discharge Plan Discharge Patient Disposition: Xfer SNF Condition: Stable Prescriptions: New acetaminophen 500 mg Tablet 1,000 mg PO Q8H 15 Days Qty: 90 0RF aspirin 325 mg Tablet,Delayed Release (Dr/Ec) 325 mg PO DAILY 30 Days Qty: 30 0RF oxycodone 5 mg Tablet 5 mg PO Q4H PRN (Reason: Moderate Pain) 7 Days Qty: 30 0RF sulfamethoxazole-trimethoprim [Bactrim DS] 800-160 mg tablet 1 tab PO BID 14 Days Qty: 28 0RF Continued acetaminophen 500 mg capsule 500 mg PO Q6H PRN (Reason: Pain) tizanidine 6 mg capsule 6 mg PO BID PRN (Reason: Allergic Reaction) hydrochlorothiazide 12.5 mg capsule 12.5 mg PO DAILY metoprolol succinate 50 mg tablet extended release 24 hr 50 mg PO DAILY piroxicam 20 mg capsule 20 mg PO DAILY magnesium oxide 400 mg magnesium capsule 400 mg PO DAILY amlodipine 10 mg tablet 10 mg PO DAILY PRN (Reason: high blood pressure) atorvastatin 20 mg tablet 20 mg PO DAILY clonidine [[id number]] 0.3 mg/24 hr patch weekly 1 patch transdermal DAILY lisinopril 10 mg tablet 10 mg PO DAILY hydralazine 25 mg tablet 25 mg PO Q8H Discharge Orders: Discharge Order (Routine); Ordered 07/03/22 Ordered By: Selam Masters Referrals: Selam Masters MD [Physician] - 07/14/22 9:15 am Discharge Diet: Advance as tolerated and Usual diet Discharge Activity: Increase activity as tolerated, Limit activity as instructed, Use walker/crutches as instructed and As per PT/OT instructions Patient Instructions: Oxycodone/Acetaminophen (By mouth), Aspirin (By mouth), Total Hip Replacement (GEN) Activity Restrictions/Additional Instructions: Posterior hip precautions, left hip. May ambulate weight-bear as tolerated. Physical therapy for range of motion, gait training, and strengthening. Please maintain surgical dressing until follow up appointment unless dressing becomes soiled, then change as needed. Discharge Attestations Time Spent in Discharge Care*: greater than 30 min Specific Discharge Activities: educating patient, documenting/other paperwork and evaluating patient/reviewing data Quality Metrics Clinical Quality Measures [ No reported AMI, CVA or VTE this stay] Coding Level of Care Code Acute Code for Chg Fwd Diagnoses Status post total hip replacement, left Z96.642 Primary osteoarthritis of left hip M16.12 Debility R53.81 Ankylosing spondylitis M45.9
--- NOTE | 2022-07-03 14:48 | PC.NURSE ---
Called [facility] and gave report to Kaylee at [phone].
[2022-07-03 14:49] VITALS: BP 142/85; PULSE 62; RESP 16; TEMP 37.3; O2SAT 95
--- NOTE | 2022-07-03 14:50 | PC.NURSE ---
Discharge Note Patient discharged to [facility] via [facility] transportation accompanied by [facility] personnel. Discharge instructions reviewed with patient and/or national account representative. Mobile pharmacy medications and/or prescriptions provided. Belongings/home medications returned.
== END 2022-07-03 15:53 | disposition skilled nursing facility (03) ==
LOC: MEDSURG 16:57
PROVIDERS: Admitting Provider Specialist; PCP Family Medicine; Visit Provider Specialist
PROC: (CPT 27130; principal; 2022-06-30 13:45)
DX: M16.12 Unilateral primary osteoarthritis, left hip (principal); M45.9 Ankylosing spondylitis of unspecified sites in spine; Z99.3 Dependence on wheelchair; M24.552 Contracture, left hip; I48.91 Unspecified atrial fibrillation; I10 Essential (primary) hypertension; Z95.0 Presence of cardiac pacemaker; Z79.899 Other long term (current) drug therapy
CPT/HCPCS: 27130; 51702; 72170; 80048; 81001; 85025; 87077; 87086; 87186; 87426; 97110; 97116; 97161; 97167; 97530; 97535; C1776; G0378; J0131; J0690; J0696; J1100; J1170; J2405; J2704; J3010; J3370; J3490; J7030

== ENCOUNTER → 2022-07-14 09:33 | Outpatient (BNVA) | payer MEDICARE, SELFPAY | PROVIDERS: PCP Family Medicine; Visit Provider Nurse Practitioner Family | DX: Z96.642 Presence of left artificial hip joint (principal) | CPT/HCPCS: 73502; 99024 ==

== ENCOUNTER → 2022-08-14 11:39 | Outpatient (BNVA) | payer MEDICARE, SELFPAY | PROVIDERS: PCP Family Medicine; Visit Provider Nurse Practitioner Family | DX: Z96.642 Presence of left artificial hip joint (principal) | CPT/HCPCS: 73502; 99024; 99213 ==

== ENCOUNTER 2022-08-23 20:00 | Emergency (ER) | payer MEDICARE, SELFPAY ==
[2022-08-23 20:08] VITALS: BP 148/77; PULSE 95; RESP 16; TEMP 37.3; O2SAT 95; BMI 22.7
[2022-08-23 21:32] LABS: Basophils # 0.1 10^3/uL (0.0-0.1); Basophils % 0.5 %; Eosinophils # 0.1 10^3/uL (0.0-0.8); Eosinophils % 0.5 %; Hematocrit 40.7 % (37.0-47.0); Hemoglobin 12.7 g/dL (11.5-15.3); Lymphocytes # 1.3 10^3/uL (0.8-4.8); Lymphocytes % 10.7 %; Mean Corpuscular HGB Conc 31.2 g/dL (30.0-36.0); Mean Corpuscular Hemoglobin 27.9 pg (28.0-34.0); Mean Corpuscular Volume 89.3 fl (81-99); Mean Platelet Volume 9.6 fL (7.4-10.4); Monocytes % 7.8 %; Neutrophils % 80.1 %; Nucleated Red Blood Cells % 0 %; Platelet Count 441 10^3/cmm (130-400); Red Blood Count 4.56 10^6/uL (4.1-5.3); Red Cell Distribution Width 13.1 % (12.1-15.1); White Blood Count 12.5 10^3/uL (4.0-10.0)
--- NOTE | 2022-08-23 21:40 | W.ED.NAVMDI ---
HPI - Nausea/Vomiting/Diarrhea General: Chief complaint: Nausea/Vomiting/Diarrhea Stated complaint: Diah\V\N\ABD Pain Time Seen by Provider: 08/23/22 21:35 History of Present Illness: 81-year-old female comes in today for complaints of diarrhea for the last 6 months. Patient appears nontoxic. Patient feels that the diarrhea is secondary to her ankylosing spondylitis. Patient reports no increased pain or difficulty. Patient is alert and oriented. Patient at this time is for cousin on her property in a cabin. Associated symtoms: Denies chest pain Review of Systems General: Reports: 10 or more systems reviewed and unremarkable except in HPI and below Card: Denies: chest pain Resp: Denies: dyspnea GI: Reports: diarrhea : Reports: difficulty voiding PFSH ED PFSH: Medical History A-fib Ankylosing spondylitis Benign essential HTN Debility Primary osteoarthritis of left hip Surgical History History of partial hysterectomy Hx of appendectomy Hx of cholecystectomy Presence of permanent cardiac pacemaker Family History Father Hypertension Diabetes Mother Hypertension Hyperlipidemia Grandmother Cancer Denies family history of CAD (coronary artery disease) Clotting disorder Dementia Psychiatric illness Chronic kidney disease (CKD) Suicide Anesthesia complication Bleeding disorder Family history of premature coronary artery disease Lung disease Stroke Social History Smoking and tobacco status: never smoked Alcohol intake: never Substance/Drug Use: never Physical Exam Const: COMMON NORMALS: alert HENMT: COMMON NORMALS: normocephalic HEAD & SCALP: normocephalic Neck/C-Spine: COMMON NORMALS: full ROM Resp: COMMON NORMALS: normal respiratory effort and clear to auscultation bilaterally AUSCULTATION: clear to auscultation bilaterally Cardio: COMMON NORMALS: regular rate and regular rhythm RATE: regular rate RHYTHM: regular rhythm GI: AUSCULTATION: Yes normoactive bowel sounds PALPATION: No Tenderness to palpation present (GI) Extremity: COMMON NORMALS: normal to inspection NARRATIVE EXTREMITY EXAM: Well-healed wound to the left hip area Neuro: SENSORIUM/ORIENTATION: Yes alert Course Vital Signs: Vital signs: Vital Signs Temperature 99.2 F 07/02/23 20:08 Pulse Rate 95 08/23/22 20:08 Respiratory Rate 16 08/23/22 20:08 Blood Pressure 148/77 08/23/22 20:08 Pulse Oximetry 95 08/23/22 20:08 Oxygen Delivery Me thod Room Air 08/23/22 20:08 MDM - Nausea/Vomiting/Diarrhea Medical Decision Making 81-year-old female was brought in by her cousin for concerns of persistent diarrhea for the last 6 months. Patient appears nontoxic. Abdomen soft nontender. Bowel sounds are present. Skin is warm and dry. Vital signs are normal. Differential diagnosis includes but not limited to functional diarrhea, colitis, dehydration, complication secondary to ankylosing spondylitis. Reviewed exam with patient and family with recommendations for treatment of diarrhea with addition of Metamucil and a trial of steroids to rule out her ankylosing spondylitis cause. Patient reported understanding of care plan and agreed to follow-up with primary care for further evaluation and consideration of colonoscopy. Laboratory values were unremarkable. An KUB showed no signs of bowel obstruction. Lab Data 08/23/22 21:25 08/23/22 21:25 Laboratory Results WBC 12.5 10^3/uL (4.0-10.0) H 08/23/22 21: RBC 4.56 10^6/uL (4.1-5.3) 08/23/22 21:25 Hgb 12.7 g/dL (11.5-15.3) 08/23/22 21:25 Hct 40.7 % (37.0-47.0) 08/23/22 21: MCV 89.3 fl (81-99) 08/23/22 21:25 MCH 27.9 pg (28.0-34.0) L 08/23/22 21: MCHC 31.2 g/dL (30.0-36.0) 08/23/22 21: RDW 13.1 % (12.1-15.1) 08/23/22 21: Plt Count 441 10^3/cmm (130-400) H 08/23/22 21:25 MPV 9.6 fL (7.4-10.4) 08/23/22 21:25 Neut % (Auto) 80.1 % 08/23/22 21:25 Lymph % (Auto) 10.7 % 08/23/22 21:25 [place] % (Auto) 7.8 % 08/23/22 21:25 Eos % (Auto) 0.5 % 08/23/22 21:25 Baso % (Auto) 0.5 % 08/23/22 21:25 Neut # (Auto) 10.00 10^3/uL (1.8-7.7) H 08/23/22 21:25 Lymph # (Auto) 1.3 10^3/uL (0.8-4.8) 08/23/22 21:25 [place] # (Auto) 1.0 10^3/uL (0.2-0.9) H 08/23/22 21:25 Eos # (Auto) 0.1 10^3/uL (0.0-0.8) 08/23/22 21:25 Baso # (Auto) 0.1 10^3/uL (0.0-0.1) 08/23/22 21:25 Nucleated RBC % (auto) 0 % 08/23/22 21:25 Nucleated RBCs # 0.0 /100WBC 08/23/22 21:25 Sodium 138 mmol/L (136-145) 08/23/22 21:25 Potassium 3.7 mmol/L (3.5-5.1) 08/23/22 21:25 Chloride 97 mmol/L (98-107) L 08/23/22 21:25 Carbon Dioxide 30 mmol/L (22-29) H 08/23/22 21:25 Anion Gap 14.7 (5-19) 08/23/22 21:25 BUN 24 mg/dL (8-23) H 08/23/22 21:25 Creatinine 1.1 mg/dL (0.5-0.9) H 08/23/22 21:25 GFR Calculation Not Reportable 08/23/22 21:25 Glucose 150 mg/dL (65-115) H 08/23/22 21:25 Calculated Osmolality 293 mOsm/kg (285-295) 08/23/22 21:25 Calcium 10.6 mg/dL (8.5-10.5) H 08/23/22 21:25 Total Bilirubin 0.5 mg/dL (0.15-1.2) 07/02/23 21:25 AST 16 U/L (0-32) 08/23/22 21:25 ALT 9 U/L (0-33) 08/23/22 21:25 Alkaline Phosphatase 82 U/L (35-105) 08/23/22 21:25 Total Protein 7.3 g/dL (6.6-8.7) 08/23/22 21:25 Albumin 4.1 g/dL (3.5-5.2) 08/23/22 21:25 Globulin 3.2 g/dL (1.3-4.6) 08/23/22 21:25 Lipase 8 U/L (13-60) L 08/23/22 21:25 Discharge Plan Discharge Patient Disposition: Home Clinical Impression: Diarrhea Qualifiers: Diarrhea type: unspecified type Qualified Code(s): R19.7 - Diarrhea, unspecified Ankylosing spondylitis Qualifiers: Ankylosing spondylitis location: multiple sites in spine Qualified Code(s): M45.0 - Ankylosing spondylitis of multiple sites in spine Condition: Stable Prescriptions: New prednisone 20 mg tablet 20 mg PO BID 10 Days Qty: 20 0RF diphenoxylate-atropine 2.5-0.025 mg tablet 1 tab PO BID PRN (Reason: diarrhea) Qty: 10 0RF No Action acetaminophen 500 mg capsule 500 mg PO Q6H PRN (Reason: Pain) tizanidine 6 mg capsule 6 mg PO BID PRN (Reason: Allergic Reaction) hydrochlorothiazide 12.5 mg capsule 12.5 mg PO DAILY metoprolol succinate 50 mg tablet extended release 24 hr 50 mg PO DAILY piroxicam 20 mg capsule 20 mg PO DAILY magnesium oxide 400 mg magnesium capsule 400 mg PO DAILY amlodipine 10 mg tablet 10 mg PO DAILY PRN (Reason: high blood pressure) atorvastatin 20 mg tablet 20 mg PO DAILY clonidine [[id number]] 0.3 mg/24 hr patch weekly 1 patch transdermal DAILY lisinopril 10 mg tablet 10 mg PO DAILY hydralazine 25 mg tablet 25 mg PO Q8H Discharge Orders: Discharge ED (Routine); Ordered 08/23/22 Ordered By: Gen Keenan Referrals: Ramy Berger MD [Primary Care Provider] - Discharge Diet: Usual diet Discharge Activity: Increase activity as tolerated Patient Instructions: Chronic Diarrhea (ED) Activity Restrictions/Additional Instructions: Sometimes adding fiber to the diet will help bulk the stool and slow transit during diarrhea episodes. Fiber additives like Metamucil sometimes can be very assistive and bulking the stool and slowing diarrhea. Make sure to drink plenty of water and electrolyte solutions in order to maintain hydration. Continue routine medications as directed. Follow-up with primary care for further evaluation and treatment. If diarrhea persists you need to have a colonoscopy for further evaluation. Coding Level of Care Code ED Optical Laboratory Technician for Pao Simmons
--- NOTE | 2022-08-23 21:48 | XRR_ITS ---
PROCEDURE INFORMATION: Exam: XR Abdomen Exam date and time: 08/23/2022 9:57 PM Age: 81 years old Clinical indication: Other: Diarrhea TECHNIQUE: Imaging protocol: Radiologic exam of the abdomen. Views: Frontal supine view of the abdomen. 1 View. COMPARISON: CR XR hip LT 2-3V wo/w pel* [id number] 08/14/2022 11:39 AM FINDINGS: Gastrointestinal tract: See Intraperitoneal space finding. Intraperitoneal space: Single supine view was submitted. The right lateral aspect of the abdomen is partially excluded. Next moderate-large colorectal stool burden. No obvious bowel obstruction or pneumatosis. Bones/joints: No acute findings. Right total hip prosthesis. XR/XR KUB [id number] IMPRESSION: Moderate-large stool burden. No obvious bowel obstruction or pneumatosis.
[2022-08-23 21:50] LABS: Alanine Aminotransferase 9 U/L (0-33); Albumin Level 4.1 g/dL (3.5-5.2); Alkaline Phosphatase 82 U/L (35-105); Anion Gap 14.7 (5-19); Aspartate Amino Transferase 16 U/L (0-32); Blood Urea Nitrogen 24 mg/dL (8-23); Calcium 10.6 mg/dL (8.5-10.5); Carbon Dioxide 30 mmol/L (22-29); Chloride 97 mmol/L (98-107); Globulin 3.2 g/dL (1.3-4.6); Glucose 150 mg/dL (65-115); Lipase 8 U/L (13-60); Osmolality Calculated 293 mOsm/kg (285-295); Potassium 3.7 mmol/L (3.5-5.1); Sodium 138 mmol/L (136-145); Total Bilirubin 0.5 mg/dL (0.15-1.2); Total Protein 7.3 g/dL (6.6-8.7)
[2022-08-23] MEDS: diphenoxylate/atropine Tablet 2 TAB PO (22:09)
[2022-08-23] MEDS: sodium chloride 0.9% 500 ML 999 ML IV (22:09)
[2022-08-23] MEDS: dexamethasone 10 mg/mL INJ IVP (22:10)
== END 2022-08-23 23:01 | disposition home or self-care (01) ==
PROVIDERS: Emergency Provider Nurse Practitioner Family; PCP Family Medicine
DX: R19.7 Diarrhea, unspecified (principal); M45.0 Ankylosing spondylitis of multiple sites in spine; I10 Essential (primary) hypertension; Z79.899 Other long term (current) drug therapy
CPT/HCPCS: 36415; 74018; 80053; 83690; 85025; 96374; 99284; J1100; J7040

== ENCOUNTER 2022-10-26 18:08 | Emergency (ER) | payer MEDICARE, SELFPAY ==
[2022-10-26 18:23] VITALS: BP 178/84; PULSE 68; RESP 17; TEMP 36.6; O2SAT 96; BMI 25.8
[2022-10-26 18:41] VITALS: BP 206/78; PULSE 62; RESP 16; O2SAT 98
--- NOTE | 2022-10-26 18:59 | ED_ITS ---
HPI - Nausea/Vomiting/Diarrhea General: Chief complaint: Nausea/Vomiting/Diarrhea Stated complaint: diarrhea, nausea Time Seen by Provider: 10/26/22 18:28 Source: patient Mode of arrival: ambulatory Limitations: no limitations History of Present Illness: See nursing assessment. Patient states she had nausea 2 days ago but denies any nausea now. She states she has had chronic loose stools and diarrhea for 3 to 4 years. She states she was seen about 6 weeks ago for the same problem and did not get any treatment. I did review her old record and states that she was sent home prescription Lomotil. Apparently she did not fill that prescription. She states that she has had formed stool today but did have some diarrhea with it. She denies any blood in her stool she denies any fever. She states she recently had her clonidine patch decreased from 0.3 mg/day to 0.2 mg/day dosing. She has had no other changes in her blood pressure medication. Presently her blood pressure is 194/81. She denies any abdominal pain she denies any dysuria. She denies fever. She states her stools are actually better today than usual. Associated symtoms: Denies anxiety, change in vision, chest pain, headache(s) or palpitations Review of Systems Const: Denies: fever(s) or chills Eyes: Denies: change in vision ENMT: Denies: throat pain Card: Denies: chest pain or palpitations Resp: Denies: dyspnea or wheezing GI: Reports: diarrhea and other (Intermittent nausea. No nausea today.); Denies: abdominal pain or vomiting : Denies: flank pain Musc: Denies: neck pain or back pain Skin/Breast: Denies: rash or pruritus Neuro: Denies: headache(s) or numbness in extremities Psych: Denies: anxiety Mack/Lymph: Denies: enlarged lymph nodes PFSH ED PFSH: Medical History A-fib Ankylosing spondylitis Benign essential HTN Debility Primary osteoarthritis of left hip Surgical History History of partial hysterectomy Hx of appendectomy Hx of cholecystectomy Presence of permanent cardiac pacemaker Family History Father Hypertension Diabetes Mother Hypertension Hyperlipidemia Grandmother Cancer Denies family history of CAD (coronary artery disease) Clotting disorder Dementia Psychiatric illness Chronic kidney disease (CKD) Suicide Anesthesia complication Bleeding disorder Family history of premature coronary artery disease Lung disease Stroke Social History Smoking and tobacco status: never smoked Alcohol intake: never Substance/Drug Use: never Physical Exam Const: COMMON NORMALS: no acute distress, patient oriented x3, no limitations and well nourished GENERAL APPEARANCE: cooperative HENMT: COMMON NORMALS: normocephalic and atraumatic HEAD & SCALP: normocephalic and atraumatic FACE & SINUS: normal facial exam Eye: COMMON NORMALS: EOMs intact bilaterally Neck/C-Spine: COMMON NORMALS: full ROM, no lymphadenopathy, supple and no meningeal signs GENERAL: Yes normal visual inspection Lymph: LYMPHATIC: no lymphadenopathy noted Chest: COMMONS NORMALS: normal inspection of the chest and normal palpation of entire chest wall CHEST: No Ecchymosis present and No rash Resp: COMMON NORMALS: normal respiratory effort, No retractions and clear to a uscultation bilaterally EFFORT & INSPECTION: No respiratory distress AUSCULTATION: clear to auscultation bilaterally Cardio: COMMON NORMALS: regular rate, regular rhythm and Peripheral pulses 2+ throughout JUGULAR VENOUS DISTENTION: no JVD RATE: regular rate RHYTHM: regular rhythm PERIPHERAL PULSES: Peripheral pulses 2+ throughout GI: COMMON NORMALS: Normal to inspection, nondistended, normoactive bowel sounds present, Soft to palpation, non-tender, No hepatosplenomegaly present and no masses PALPATION: Yes Soft to palpation and Yes No hepatosplenomegaly present : COMMON NORMALS: Yes no CVA tenderness BLADDER/KIDNEY EXAM: Yes no CVA tenderness Back/Pelvis: COMMON NORMALS: no CVA tenderness Extremity: COMMON NORMALS: normal to inspection, full ROM and capillary refill normal Neuro: COMMON NORMALS: patient oriented x3, CN's II-XII intact bilaterally, no focal motor deficits and no sensory deficits noted MENINGEAL SIGNS: Yes no meningeal signs Psych: COMMON NORMALS: mental status grossly normal and Normal thought process present THOUGHT PROCESS: Normal thought process present Skin: COMMON NORMALS: no rashes or lesions noted and no wounds GENERAL SKIN EXAM: no rashes or lesions noted Course Vital Signs: Vital signs: Vital Signs Temperature 97.8 F 10/26/22 18:23 Pulse Rate 62 10/26/22 18:41 Respiratory Rate 16 10/26/22 18:41 Blood Pressure 206/78 10/26/22 18:41 Pulse Oximetry 98 10/26/22 18:41 Oxygen Delivery Me thod Room Air 10/26/22 18:41 MDM - Nausea/Vomiting/Diarrhea Medical Decision Making 81-year-old female with recent nausea that has resolved. Patient mainly here for possible treatment for 3 to 4-year history of diarrhea. She was seen here approximately 6 weeks ago and had work-up done at that time. Patient's white blood cell count was slightly elevated around 12. Otherwise, no other problems found. Patient was prescribed Lomotil but never filled the prescription. Patient states that she takes Imodium [id number] that does not help with her diarrhea. She would like her prescription renewed for clonidine patches 0.3 mg/day that she changes every week. Differential diagnoses include malabsorption problem, chronic colitis, Crohn's disease, diarrhea from cholecystectomy, C. difficile diarrhea, viral gastroenteritis Labs consistent with mild dehydration. Patient has mild anemia as well. Lab Data 10/26/22 19:18 10/26/22 19:18 Laboratory Results WBC 9.70 10^3/uL (3.29-11.43) 10/26/22 19:18 RBC 3.77 10^6/uL (3.85-5.65) L 10/26/22 19:18 Hgb 10.50 g/dL (11.27-16.99) L 10/26/22 19:18 Hct 34.6 % (36-47) L 10/26/22 19:18 MCV 91.8 fl (85-98) 10/26/22 19:18 MCH 27.9 pg (27-33) 10/26/22 19:18 MCHC 30.3 g/dL (30-55) 10/26/22 19:18 RDW 15.6 % (12.1-15.1) H 10/26/22 19:18 Plt Count 366 10^3/cmm (157-399) 10/26/22 19:18 MPV 9.8 fL (7.4-10.4) 10/26/22 19:18 Neut % (Auto) 73.3 % 10/26/22 19:18 Lymph % (Auto) 13.9 % 10/26/22 19:18 [place] % (Auto) 11.3 % 10/26/22 19:18 Eos % (Auto) 0.8 % 10/26/22 19:18 Baso % (Auto) 0.4 % 10/26/22 19:18 Neut # (Auto) 7.10 10^3/uL (1.8-7.7) 10/26/22 19:18 Lymph # (Auto) 1.4 10^3/uL (0.8-4.8) 10/26/22 19:18 [place] # (Auto) 1.1 10^3/uL (0.2-0.9) H 10/26/22 19:18 Eos # (Auto) 0.1 10^3/uL (0.0-0.8) 10/26/22 19:18 Baso # (Auto) 0.0 10^3/uL (0.0-0.1) 10/26/22 19:18 Nucleated RBC % (auto) 0 % 10/26/22 19:18 Nucleated RBCs # 0.0 /100WBC 10/26/22 19:18 Sodium 140 mmol/L (136-145) 10/26/22 19:18 Potassium 4.1 mmol/L (3.5-5.1) 10/26/22 19:18 Chloride 106 mmol/L (98-107) 10/26/22 19:18 Carbon Dioxide 25 mmol/L (22-29) 10/26/22 19:18 Anion Gap 13.1 (5-19) 10/26/22 19:18 BUN 40 mg/dL (8-23) H 10/26/22 19:18 Creatinine 1.1 mg/dL (0.5-0.9) H 10/26/22 19:18 GFR Calculation Not Reportable 10/26/22 19:18 Glucose 103 mg/dL (65-115) 10/26/22 19:18 Calculated Osmolality 300 mOsm/kg (285-295) H 10/26/22 19:18 Calcium 9.4 mg/dL (8.5-10.5) 10/26/22 19:18 Discharge Plan Discharge Patient Disposition: Home Clinical Impression: Diarrhea in adult patient, Dehydration Condition: Stable Prescriptions: New clonidine 0.3 mg/24 hr patch weekly 1 patch transdermal .weekly Qty: 4 3RF Rx Instructions: take 0.3mg patch instead of 0.2mg patch. Do not use both together. Lomotil 2.5-0.025 mg tablet 1 tab PO BID PRN (Reason: diarrhea) Qty: 20 1RF No Action acetaminophen 500 mg capsule 500 mg PO Q6H PRN (Reason: Pain) tizanidine 6 mg capsule 6 mg PO BID PRN (Reason: Allergic Reaction) hydrochlorothiazide 12.5 mg capsule 12.5 mg PO DAILY metoprolol succinate 50 mg tablet extended release 24 hr 50 mg PO DAILY piroxicam 20 mg capsule 20 mg PO DAILY magnesium oxide 400 mg magnesium capsule 400 mg PO DAILY amlodipine 10 mg tablet 10 mg PO DAILY PRN (Reason: high blood pressure) atorvastatin 20 mg tablet 20 mg PO DAILY clonidine [[id number]] 0.3 mg/24 hr patch weekly 1 patch transdermal DAILY lisinopril 10 mg tablet 10 mg PO DAILY hydralazine 25 mg tablet 25 mg PO Q8H Metamucil 3.4 gram/5.4 gram powder 1 tbsp PO TID Qty: 660 0RF Rx Instructions: mix into at least 8 oz of water or juice before administering Discharge Orders: Discharge ED (Routine); Ordered 10/26/22 Ordered By: Fred Benjamin Referrals: Ramy Berger MD [Primary Care Provider] - Discharge Diet: Usual diet Discharge Activity: Increase activity as tolerated Patient Instructions: Dehydration (ED), Chronic Diarrhea (ED) Activity Restrictions/Additional Instructions: Continue all medications as prescribed. May take Lomotil for diarrhea twice a day as needed for diarrhea. Once stool becomes formed, hold Lomotil. Drink plenty of water. You are slightly dehydrated today. Follow-up with family doctor for possible referral to gastroenterology technician for evaluation of chronic diarrhea. Coding Level of Care Code ED [facility] Director for Pao Simmons
[2022-10-26] MEDS: hyDRALAzine 20 mg/mL INJ 1 mL 5 MG IVP (19:16)
[2022-10-26] MEDS: diphenoxylate/atropine Tablet 1 TAB PO (19:16)
[2022-10-26 19:37] LABS: Basophils % 0.4 %; Eosinophils # 0.1 10^3/uL (0.0-0.8); Eosinophils % 0.8 %; Hematocrit 34.6 % (36-47); Lymphocytes # 1.4 10^3/uL (0.8-4.8); Lymphocytes % 13.9 %; Mean Corpuscular HGB Conc 30.3 g/dL (30-55); Mean Corpuscular Hemoglobin 27.9 pg (27-33); Mean Corpuscular Volume 91.8 fl (85-98); Mean Platelet Volume 9.8 fL (7.4-10.4); Monocytes # 1.1 10^3/uL (0.2-0.9); Monocytes % 11.3 %; Neutrophils % 73.3 %; Nucleated Red Blood Cells % 0 %; Platelet Count 366 10^3/cmm (157-399); Red Blood Count 3.77 10^6/uL (3.85-5.65); Red Cell Distribution Width 15.6 % (12.1-15.1)
[2022-10-26 20:06] LABS: Blood Urea Nitrogen 40 mg/dL (8-23); Calcium 9.4 mg/dL (8.5-10.5); Carbon Dioxide 25 mmol/L (22-29); Chloride 106 mmol/L (98-107); Glucose 103 mg/dL (65-115); Osmolality Calculated 300 mOsm/kg (285-295); Sodium 140 mmol/L (136-145)
[2022-10-26 20:12] LABS: Anion Gap 13.1 (5-19); Potassium 4.1 mmol/L (3.5-5.1)
[2022-10-26 20:52] VITALS: BP 217/86; PULSE 83; RESP 16; O2SAT 96
== END 2022-10-26 20:54 | disposition home or self-care (01) ==
PROVIDERS: Emergency Provider Family Medicine; PCP Family Medicine
DX: R19.7 Diarrhea, unspecified (principal); E86.0 Dehydration; I10 Essential (primary) hypertension
CPT/HCPCS: 80048; 85025; 96374; 99284; J0360

== ENCOUNTER → 2022-11-24 14:02 | Outpatient (BNVA) | payer MEDICARE, SELFPAY | PROVIDERS: PCP Family Medicine; Visit Provider Physician Assistant | DX: Z96.642 Presence of left artificial hip joint (principal) | CPT/HCPCS: 73502; 99213 ==

== ENCOUNTER → 2022-11-30 12:50 | Outpatient (BNVA) | payer MEDICARE, SELFPAY | PROVIDERS: PCP Family Medicine; Visit Provider Nurse Practitioner Family | DX: I48.91 Unspecified atrial fibrillation (principal); I10 Essential (primary) hypertension; Z95.0 Presence of cardiac pacemaker | CPT/HCPCS: 99214 ==

== ENCOUNTER → 2023-01-04 10:18 | Outpatient (BNVA) | payer MEDICARE, SELFPAY | PROVIDERS: PCP Family Medicine; Visit Provider Nurse Practitioner | DX: Z96.642 Presence of left artificial hip joint (principal); R29.898 Other symptoms and signs involving the musculoskeletal system; M45.0 Ankylosing spondylitis of multiple sites in spine; L84 Corns and callosities | CPT/HCPCS: 73502; 99214 ==

== ENCOUNTER 2023-02-22 11:40 | Emergency (ER) | payer MEDICARE, SELFPAY ==
[2023-02-22 11:44] VITALS: BP 210/93; PULSE 68; RESP 18; TEMP 36.6; O2SAT 97; BMI 23.8
--- NOTE | 2023-02-22 11:49 | ECG_ITS ---
[facility] Test Date: 2023-02-22 Pat Name: Billie Chicas Department: Room: Gender: Female Line Puller: : 1940 Requested By: Dalton Cox Order Number: [id number] Soledad MD: Addi Pollard M.D. Measurements Intervals [place] Rate: 63 P: 87 MA: 226 QRS: 74 QRSD: 88 T: 76 QT: 412 QTc: 422 Interpretive Statements SINUS RHYTHM WITH FIRST DEGREE AV BLOCK POSSIBLE RIGHT VENTRICULAR CONDUCTION DELAY [RSR (QR) IN V1/V2] Compared to ECG 06/24/2022 11:34:16 First degree AV block now present Atrial-paced complex(es) or rhythm no longer present T-wave abnormality no longer present Electronically Signed On 02-22-2023 12:15:31 MISSILE TRACKING TECHNICIAN by Addi Pollard M.D. [id number]
[2023-02-22 12:15] VITALS: PULSE 60; RESP 18; O2SAT 94
[2023-02-22 12:15] LABS: Basophils # 0.1 10^3/uL (0.0-0.1); Basophils % 0.7 %; Eosinophils # 0.1 10^3/uL (0.0-0.8); Hematocrit 42.9 % (36-47); Lymphocytes # 1.6 10^3/uL (0.8-4.8); Lymphocytes % 16.9 %; Mean Corpuscular HGB Conc 31.9 g/dL (30-55); Mean Corpuscular Hemoglobin 27.9 pg (27-33); Mean Corpuscular Volume 87.4 fl (85-98); Mean Platelet Volume 9.4 fL (7.4-10.4); Monocytes # 0.7 10^3/uL (0.2-0.9); Monocytes % 7.1 %; Neutrophils # 7.08 10^3/uL (1.8-7.7); Neutrophils % 73.8 %; Nucleated Red Blood Cells % 0 %; Platelet Count 328 10^3/cmm (157-399); Red Blood Count 4.91 10^6/uL (3.85-5.65); Red Cell Distribution Width 14.1 % (12.1-15.1)
[2023-02-22] MEDS: ondansetron 2 mg/ML SDV 2 mL 4 MG IVP (12:19)
[2023-02-22 12:35] LABS: Alanine Aminotransferase 17 U/L (0-33); Albumin Level 4.2 g/dL (3.5-5.2); Alkaline Phosphatase 77 U/L (35-105); Anion Gap 11.6 (5-19); Aspartate Amino Transferase 21 U/L (0-32); Blood Urea Nitrogen 29 mg/dL (8-23); Carbon Dioxide 31 mmol/L (22-29); Chloride 99 mmol/L (98-107); Globulin 3.3 g/dL (1.3-4.6); Glucose 123 mg/dL (65-115); Osmolality Calculated 293 mOsm/kg (285-295); Potassium 3.6 mmol/L (3.5-5.1); Sodium 138 mmol/L (136-145); Total Bilirubin 0.6 mg/dL (0.15-1.2); Total Protein 7.5 g/dL (6.6-8.7)
--- NOTE | 2023-02-22 12:39 | ED_ITS ---
HPI - Abdominal Pain 2 General: Chief Complaint: Abdominal Pain Stated Complaint: abd pain, right side Time Seen by Provider: 02/22/23 11:49 Source: patient Mode of arrival: wheelchair History of Present Illness: 82-year-old female presents emergency ro om complaining of right back pain and flank pain spasmodic intermittent in nature no associated dysuria urgency or frequency no hematuria no vomiting or diarrhea no fever sweats or chills she has a history of chronic back pain. MD elicited complaint: abdominal pain Onset (ago): day(s) Pain Consistency: intermittent Location: R flank Severity: moderate Quality: cramping Exacerbating factors: nothing Relieving factors: nothing Associated Symptoms: Reports GI cramping; Denies anorexia, belching, bloating, change in bowel habits, change in stool character, chills, coffee ground emesis, constipation, diarrhea, dyspepsia, dysuria, excessive flatus, fever(s), heartburn, hematochezia, hematuria, hematemesis, fecal incontinence, loose stools, melena, nausea, poor appetite, syncope and vomiting Review of Systems 2 Const: Denies: fever(s) or chills Card: Denies: chest pain or syncope Resp: Denies: dyspnea GI: Reports: abdominal pain and GI cramping; Denies: nausea, vomiting, hematemesis, coffee ground emesis, heartburn, diarrhea, constipation, bloating, belching, excessive flatus, fecal incontinence, change in bowel habits, change in stool character, hematochezia or melena : Denies: dysuria or hematuria Musc: Denies: neck pain or back pain Skin/Breast: Denies: rash PFSH ED 2 PFSH: Medical History Callus of foot Pain of left foot Weakness of left lower extremity Primary osteoarthritis of left hip Benign essential HTN A-fib Debility Ankylosing spondylitis Surgical History History of partial hysterectomy Hx of cholecystectomy Hx of appendectomy Presence of permanent cardiac pacemaker Family History Father Hypertension Diabetes Mother Hypertension Hyperlipidemia Grandmother Cancer Denies family history of CAD (coronary artery disease) Clotting disorder Dementia Psychiatric illness Chronic kidney disease (CKD) Suicide Anesthesia complication Bleeding disorder Family history of premature coronary artery disease Lung disease Stroke Social History Smoking and tobacco/nicotine status: never used tobacco/nicotine Alcohol intake: never Substance/Drug Use: never Physical Exam 2 Const: COMMON NORMALS: no acute distress GENERAL APPEARANCE: cooperative and comfortable ORIENTATION/CONSCIOUSNESS: Yes awake, Yes oriented to person, Yes oriented to place and Yes oriented to time HENMT: COMMON NORMALS: normocephalic, atraumatic and hearing grossly normal bilaterally HEAD & SCALP: normocephalic and atraumatic Resp: COMMON NORMALS: normal respiratory effort, No retractions, No use of accessory muscles and clear to auscultation bilaterally AUSCULTATION: clear to auscultation bilaterally Cardio: COMMON NORMALS: regular rate, regular rhythm and No murmurs present (Cardio) RATE: regular rate RHYTHM: regular rhythm GI: COMMON NORMALS: Soft to palpation and No hepatosplenomegaly present A USCULTATION: Yes normoactive bowel sounds PALPATION: Yes Soft to palpation, No Tenderness to palpation present (GI), No Guarding due to palpation present (GI) and Yes No hepatosplenomegaly present Extremity: COMMON NORMALS: normal to inspection, capillary refill normal, no clubbing, cyanosis or edema, no calf tenderness and no pedal edema Neuro: SENSORIUM/ORIENTATION: Yes oriented to person, Yes oriented to place and Yes oriented to time Skin: COMMON NORMALS: no rashes or lesions noted GENERAL SKIN EXAM: no rashes or lesions noted Course 2 Vital Signs: Vital signs: Vital Signs Temperature 98 F 02/22/23 11:44 Pulse Rate 60 02/22/23 14:28 Respiratory Rate 18 02/22/23 14:28 Blood Pressure 224/92 02/22/23 14:28 Pulse Oximetry 95 02/22/23 14:28 Oxygen Delivery Me thod Room Air 02/22/23 13:29 MDM - Abdominal Pain Medical Decision Making Pain reproducible with palpation laboratory test reviewed no significant finding no cystitis no hematuria. Treat for musculoskeletal back pain follow-up with primary care Medical Records I reviewed the patient's medical records. Lab Data I reviewed the patient's lab results. 02/22/23 12:06 02/22/23 12:06 Labs/Radiology: Laboratory Results WBC 9.60 10^3/uL (3.29-11.43) 02/22/23 12:06 RBC 4.91 10^6/uL (3.85-5.65) 02/22/23 12:06 Hgb 13.70 g/dL (11.27-16.99) 02/22/23 12:06 Hct 42.9 % (36-47) 02/22/23 12:06 MCV 87.4 fl (85-98) 02/22/23 12:06 MCH 27.9 pg (27-33) 02/22/23 12:06 MCHC 31.9 g/dL (30-55) 02/22/23 12:06 RDW 14.1 % (12.1-15.1) 02/22/23 12:06 Plt Count 328 10^3/cmm (157-399) 02/22/23 12:06 MPV 9.4 fL (7.4-10.4) 02/22/23 12:06 Neut % (Auto) 73.8 % 02/22/23 12:06 Lymph % (Auto) 16.9 % 02/22/23 12:06 [place] % (Auto) 7.1 % 02/22/23 12:06 Eos % (Auto) 1.0 % 02/22/23 12:06 Baso % (Auto) 0.7 % 02/22/23 12:06 Neut # (Auto) 7.08 10^3/uL (1.8-7.7) 02/22/23 12:06 Lymph # (Auto) 1.6 10^3/uL (0.8-4.8) 02/22/23 12:06 [place] # (Auto) 0.7 10^3/uL (0.2-0.9) 02/22/23 12:06 Eos # (Auto) 0.1 10^3/uL (0.0-0.8) 02/22/23 12:06 Baso # (Auto) 0.1 10^3/uL (0.0-0.1) 02/22/23 12:06 Nucleated RBC % (auto) 0 % 02/22/23 12:06 Nucleated RBCs # 0.0 /100WBC 02/22/23 12:06 Sodium 138 mmol/L (136-145) 02/22/23 12:06 Potassium 3.6 mmol/L (3.5-5.1) 02/22/23 12:06 Chloride 99 mmol/L (98-107) 02/22/23 12:06 Carbon Dioxide 31 mmol/L (22-29) H 02/22/23 12:06 Anion Gap 11.6 (5-19) 02/22/23 12:06 BUN 29 mg/dL (8-23) H 02/22/23 12:06 Creatinine 0.9 mg/dL (0.5-0.9) 02/22/23 12:06 GFR Calculation Not Reportable 02/22/23 12:06 Glucose 123 mg/dL (65-115) H 02/22/23 12:06 Calculated Osmolality 293 mOsm/kg (285-295) 02/22/23 12:06 Calcium 11.0 mg/dL (8.5-10.5) H 02/22/23 12:06 Total Bilirubin 0.6 mg/dL (0.15-1.2) 02/22/23 12:06 AST 21 U/L (0-32) 02/22/23 12:06 ALT 17 U/L (0-33) 02/22/23 12:06 Alkaline Phosphatase 77 U/L (35-105) 02/22/23 12:06 Total Protein 7.5 g/dL (6.6-8.7) 02/22/23 12:06 Albumin 4.2 g/dL (3.5-5.2) 02/22/23 12:06 Globulin 3.3 g/dL (1.3-4.6) 02/22/23 12:06 Urine Color Yellow (Yellow) 02/22/23 13:28 Urine Appearance Sl hazy (CLEAR) A 02/22/23 13:28 Urine pH 8 (5-7) H 02/22/23 13:28 Ur Specific [place] 1.010 (1.005-1.030) 02/22/23 13:28 Urine Protein Neg (Negative) 02/22/23 13:28 Urine Glucose (UA) Norm (Normal) 02/22/23 13:28 Urine Ketones Negative (Negative) 02/22/23 13:28 Urine Blood Neg (Negative) 02/22/23 13:28 Urine Nitrate Negative (Negative) 02/22/23 13:28 Urine Bilirubin Neg (Negative) 02/22/23 13:28 Prot Sulfosalicylic Acd Positive (Negative) 02/22/23 13:28 Urine Urobilinogen Norm mg/dL (Negative) 02/22/23 13:28 Ur Leukocyte Esterase Negative (Negative) 02/22/23 13:28 Urine RBC None /hpf (0-2) 02/22/23 13:28 Urine WBC 0-4 /hpf (0-5) H 02/22/23 13:28 Ur Squamous Epith Cells None /hpf (0-5) 02/22/23 13:28 Amorphous Sediment Not Reportable 02/22/23 13:28 Urine Bacteria 2+ /hpf (NONE) H 02/22/23 13:28 All radiology interpretation(s) finalized by discharge Discharge Plan Discharge Patient Disposition: Home Clinical Impression: Back pain Ankylosing spondylitis Qualifiers: Ankylosing spondylitis location: multiple sites in spine Qualified Code(s): M 45.0 - Ankylosing spondylitis of multiple sites in spine Condition: Stable Prescriptions: New prednisone 20 mg tablet 20 mg PO TID Qty: 15 0RF Rx Instructions: 1 p.o. 3 times daily x3 days, 1 p.o. twice daily x2 days, 1 p.o. daily x2 days tizanidine 4 mg tablet 4 mg PO Q6H PRN (Reason: muscle spasticity) Qty: 20 0RF Rx Instructions: do not exceed 3 doses per 24 hrs No Action acetaminophen 500 mg capsule 500 mg PO Q6H PRN (Reason: Pain) tizanidine 6 mg capsule 6 mg PO BID PRN (Reason: Allergic Reaction) metoprolol succinate 50 mg tablet extended release 24 hr 50 mg PO DAILY piroxicam 20 mg capsule 20 mg PO DAILY magnesium oxide 400 mg magnesium capsule 400 mg PO DAILY hydralazine 25 mg tablet 50 mg PO BID clonidine 0.3 mg/24 hr patch weekly 1 patch transdermal .weekly Qty: 4 3RF Rx Instructions: take 0.3mg patch instead of 0.2mg patch. Do not use both together. amlodipine 10 mg tablet 10 mg PO DAILY PRN (Reason: high blood pressure) lisinopril 10 mg tablet 10 mg PO DAILY Lomotil 2.5-0.025 mg tablet 1 tab PO BID PRN (Reason: diarrhea) Qty: 20 1RF Discharge Orders: Discharge ED (Routine); Ordered 02/22/23 Ordered By: Dalton Garcia Discharge Diet: Usual diet Discharge Activity: Increase activity as tolerated Patient Instructions: Opioid Safety, Pain Management Activity Restrictions/Additional Instructions: Thank you for choosing [facility] for your healthcare needs today. Please realize this is an emergency room and that we are providing you with a medical screening exam and this may not be complete and all inclusive of all the testing and or work up that you may need to determine your ailment or severity of your illness. It is very important that you follow up as instructed or that you return to the Emergency Department should you have concerns or if your condition changes or worsens in any way. Your evaluated emergency room for right-sided flank and back pain. Urine did not show signs of infection or blood. Your white count 1 chemistry panel were normal. Discharge home was medications for musculoskeletal back pain was probably worsened by the fact that you have the underlying ankylosing spondylolysis. Follow-up with your primary care doctor. Coding Level of Care Code ED Geoscience Professor for Pao Simmons
[2023-02-22 13:29] VITALS: BP 230/85; PULSE 63; RESP 18; O2SAT 94
[2023-02-22 13:55] LABS: Urine Appearance SL Hazy (CLEAR); Urine Color Yellow (Yellow)
[2023-02-22 13:56] LABS: Add Urine Culture? No; Add Urine Microscopic? YES; Bacteria Urine 2+ /hpf; Bilirubin Urine Neg (Negative); Blood Urine Neg (Negative); Glucose Urine UA Norm (Normal); Ketones Urine Negative (Negative); Leukocyte Esterase Urine Negative (Negative); Nitrate Urine Negative (Negative); Protein Urine Neg (Negative); Sulfosalicylic Acid Urine Positive (Negative); Urobilinogen Urine Norm (Negative); WBC Urine 0-4 /hpf (0-5); pH Urine 8 (5-7)
[2023-02-22 14:28] VITALS: BP 224/92; PULSE 60; RESP 18; O2SAT 95
== END 2023-02-22 14:50 | disposition home or self-care (01) ==
PROVIDERS: Emergency Provider Family Medicine
DX: M45.0 Ankylosing spondylitis of multiple sites in spine (principal); I10 Essential (primary) hypertension; Z95.0 Presence of cardiac pacemaker
CPT/HCPCS: 80053; 81001; 85025; 93005; 96374; 99284; J2405

== ENCOUNTER 2023-03-03 13:32 | Outpatient (RCR) | payer MEDICARE, SELFPAY | END 2023-03-11 23:59 | disposition home or self-care (01) | LOC: SPT 13:32 | PROVIDERS: PCP Family Medicine; Visit Provider Nurse Practitioner | DX: M45.9 Ankylosing spondylitis of unspecified sites in spine (principal); R53.1 Weakness; I73.9 Peripheral vascular disease, unspecified; L84 Corns and callosities; L60.3 Nail dystrophy | CPT/HCPCS: 11055; 11721; 97110; 97161; 99203 ==

== ENCOUNTER → 2023-03-10 10:56 | Outpatient (BNVA) | payer MEDICARE, SELFPAY | PROVIDERS: PCP Family Medicine; Visit Provider Internal Medicine | DX: M45.0 Ankylosing spondylitis of multiple sites in spine (principal); M16.10 Unilateral primary osteoarthritis, unspecified hip; M16.12 Unilateral primary osteoarthritis, left hip; M24.552 Contracture, left hip; M47.892 Other spondylosis, cervical region; M47.896 Other spondylosis, lumbar region | CPT/HCPCS: 36415; 72040; 72100; 85651; 86140; 86480; 86704; 86803; 87340; 99214 ==

== ENCOUNTER 2023-03-12 16:49 | Emergency (ER) | payer MEDICARE, SELFPAY ==
[2023-03-12] VITALS (8 sets, daily range): BP systolic 150–191; BP diastolic 69–109; PULSE 76–87; RESP 15–16; TEMP 36.9; O2SAT 92–98
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
--- NOTE | 2023-03-12 18:45 | XRR_ITS ---
PROCEDURE INFORMATION: Exam: XR Chest Exam date and time: 03/12/2023 7:12 PM Age: 82 years old Clinical indication: Right-sided; Prior surgery; Surgery date: 6+ months; Surgery type: Pacer. Gb; Patient HX: C/O RT sided rib pain. No injury. ; Additional info: Weakness TECHNIQUE: Imaging protocol: Radiologic exam of the chest. Views: 1 view. COMPARISON: CR (CHEST, ) 03/12/2023 5:49 PM FINDINGS: Lungs: No evidence of focal consolidation on this single lateral view. Heart/Mediastinum: Limited evaluation of the single lateral view. Dual-chamber pacemaker noted. Bones/joints: No evidence of acute osseous abnormality. Visualized thoracic spine is grossly intact. XR/XR chest 1V [id number] IMPRESSION: 1. No evidence of acute abnormality on this single lateral view. If there is ongoing clinical concern, consider correlation with CT.
--- NOTE | 2023-03-12 18:48 | ED_ITS ---
HPI - General Adult 2 General: Chief complaint: General Medical Stated complaint: pain right side Time Seen by Provider: 03/12/23 18:28 History of Present Illness: 82-year-old female presents emergency de partment stating that she feels like the muscles in the right side of her rib cage are twitching. She states she was seen by her primary care provider and provided laboratory evaluation and chest x-ray but was not provided a diagnosis or advised as to why her muscles were twitching. She states her pain is a gnawing aching pain to her right rib area that is reproducible upon palpation. Review of Systems 2 General: Reports: 10 or more systems reviewed and unremarkable except in HPI and below : Reports: urinary urgency Musc: Reports: other (Right rib pain and muscle spasm) PFSH ED 2 PFSH: Medical History Callus of foot Pain of left foot Weakness of left lower extremity Primary osteoarthritis of left hip Benign essential HTN A-fib Debility Ankylosing spondylitis Surgical History History of partial hysterectomy Hx of cholecystectomy Hx of appendectomy Presence of permanent cardiac pacemaker Family History Father Hypertension Diabetes Mother Hypertension Hyperlipidemia Grandmother Cancer Denies family history of CAD (coronary artery disease) Clotting disorder Dementia Psychiatric illness Chronic kidney disease (CKD) Suicide Anesthesia complication Bleeding disorder Family history of premature coronary artery disease Lung disease Stroke Social History Smoking and tobacco/nicotine status: never used tobacco/nicotine Alcohol intake: never Substance/Drug Use: never Physical Exam 2 Narrative: EXAM NARRATIVE: Constitutional: the patient appears well nourished and of normal development. Vital signs as documented. No acute distress at present. Alert and oriented-to person, place, time and situation. Head, eyes, ears, nose, mouth, throat: Normocephalic, atraumatic. Pupils-equal, round, reactive to light. No scleral icterus. Normal-appearing external ears. Normal appearing nasal turbinates, no drainage. No obvious oral lesions, posterior oropharynx without erythema or exudates. Neck: Supple, trachea is midline, no lymphadenopathy, no jugular venous distension, thyromegaly, or carotid bruits. Carotid upstrokes are brisk bilaterally. Lungs: clear to auscultation to all lung price. Symmetrical rise and fall of chest, no obvious signs of increased work of breathing at present. Cardiac: Regular rate and rhythm, positive S1, S2. No murmurs, rubs or gallops that I can appreciate Abdomen: Soft, non-tender to palpation, normal active bowel sounds to all quadrants. No palpable masses, no organomegaly and abdominal bruits. Extremities: 2+ pulses in the upper extremities that are equal bilaterally, 2+ pulses in the lower extremities that are equal bilaterally. Non-edematous. Moves all extremities well, sensation to all extremities are noted. Skin: Warm, dry, intact. Course 2 Vital Signs: Vital signs: Vital Signs Temperature 98.4 F 03/12/23 16:54 Pulse Rate 76 03/12/23 20:22 Respiratory Rate 16 03/12/23 20:22 Blood Pressure 163/88 03/12/23 21:06 Pulse Oximetry 92 03/12/23 20:22 Oxygen Delivery Me thod Room Air 03/12/23 20:22 MDM - General Adult Medical Decision Making Physical exam completed and documented, I will obtain radiographic examination as well as a CBC CMP cardiac enzymes twelve-lead EKG and magnesium level. Differential Diagnosis Pleurisy, chest wall pain, musculoskeletal strain, Medical Records I reviewed the patient's medical records. Lab Data 03/12/23 19:36 03/12/23 19:36 Radiology Impressions Ribs X-Ray 03/12/23 17:11 IMPRESSION: 1. No evidence of displaced rib fracture. If there is ongoing clinical concern, consider correlation with CT. Chest X-Ray 03/12/23 18:45 IMPRESSION: 1. No evidence of acute abnormality on this single lateral view. If there is ongoing clinical concern, consider correlation with CT. Laboratory Results WBC 12.37 10^3/uL (3.29-11.43) H 03/12/23 19:36 RBC 5.47 10^6/uL (3.85-5.65) 03/12/23 19:36 Hgb 15.30 g/dL (11.27-16.99) 03/12/23 19:36 Hct 48.2 % (36-47) H 03/12/23 19:36 MCV 88.1 fl (85-98) 03/12/23 19:36 MCH 28.0 pg (27-33) 03/12/23 19:36 MCHC 31.7 g/dL (30-55) 03/12/23 19:36 RDW 14.6 % (12.1-15.1) 03/12/23 19:36 Plt Count 394 10^3/cmm (157-399) 03/12/23 19:36 MPV 9.2 fL (7.4-10.4) 03/12/23 19:36 Neut % (Auto) 69.2 % 03/12/23 19:36 Lymph % (Auto) 20.7 % 03/12/23 19:36 [place] % (Auto) 8.7 % 03/12/23 19:36 Eos % (Auto) 0.5 % 03/12/23 19:36 Baso % (Auto) 0.4 % 03/12/23 19:36 Neut # (Auto) 8.56 10^3/uL (1.8-7.7) H 03/12/23 19:36 Lymph # (Auto) 2.6 10^3/uL (0.8-4.8) 03/12/23 19:36 [place] # (Auto) 1.1 10^3/uL (0.2-0.9) H 03/12/23 19:36 Eos # (Auto) 0.1 10^3/uL (0.0-0.8) 03/12/23 19:36 Baso # (Auto) 0.1 10^3/uL (0.0-0.1) 03/12/23 19:36 Nucleated RBC % (auto) 0 % 03/12/23 19:36 Nucleated RBCs # 0.0 /100WBC 03/12/23 19:36 PT 12.60 SECONDS (12.1-14.9) 03/12/23 19:36 INR 0.92 (0.8-1.2) 03/12/23 19:36 Sodium 140 mmol/L (136-145) 03/12/23 19:36 Potassium 3.6 mmol/L (3.5-5.1) 03/12/23 19:36 Chloride 98 mmol/L (98-107) 03/12/23 19:36 Carbon Dioxide 32 mmol/L (22-29) H 03/12/23 19:36 Anion Gap 13.6 (5-19) 03/12/23 19:36 BUN 26 mg/dL (8-23) H 03/12/23 19:36 Creatinine 1.0 mg/dL (0.5-0.9) H 03/12/23 19:36 GFR Calculation Not Reportable 03/12/23 19:36 Glucose 109 mg/dL (65-115) 03/12/23 19:36 Calculated Osmolality 295 mOsm/kg (285-295) 03/12/23 19:36 Calcium 11.0 mg/dL (8.5-10.5) H 03/12/23 19:36 Magnesium 2.0 mg/dL (1.7-2.3) 03/12/23 19:36 Total Bilirubin 0.6 mg/dL (0.15-1.2) 03/12/23 19:36 AST 28 U/L (0-32) 03/12/23 19:36 ALT 26 U/L (0-33) 03/12/23 19:36 Alkaline Phosphatase 70 U/L (35-105) 03/12/23 19:36 Total Protein 8.0 g/dL (6.6-8.7) 03/12/23 19:36 Albumin 4.6 g/dL (3.5-5.2) 03/12/23 19:36 Globulin 3.4 g/dL (1.3-4.6) 03/12/23 19:36 Urine Color Yellow (Yellow) 03/12/23 19:40 Urine Appearance Hazy (CLEAR) A 03/12/23 19:40 Urine pH 6 (5-7) 03/12/23 19:40 Ur Specific [place] 1.010 (1.005-1.030) 03/12/23 19:40 Urine Protein Neg (Negative) 03/12/23 19:40 Urine Glucose (UA) Norm (Normal) 03/12/23 19:40 Urine Ketones 1+ (Negative) H 03/12/23 19:40 Urine Blood Neg (Negative) 03/12/23 19:40 Urine Nitrate Positive (Negative) H 03/12/23 19:40 Urine Bilirubin Neg (Negative) 03/12/23 19:40 Urine Urobilinogen Norm mg/dL (Negative) 03/12/23 19:40 Ur Leukocyte Esterase 2+ (Negative) H 03/12/23 19:40 Urine RBC 0-4 /hpf (0-2) H 03/12/23 19:40 Urine WBC 5-10 /hpf (0-5) H 03/12/23 19:40 Ur Squamous Epith Cells 0-4 /hpf (0-5) H 03/12/23 19:40 Amorphous Sediment Not Reportable 03/12/23 19:40 Urine Bacteria 3+ /hpf (NONE) H 03/12/23 19:40 Influenza Type A Ag negative (Negative) 03/12/23 19:22 Influenza Type B Ag negative (Negative) 03/12/23 19:22 SARS-CoV-2 Ag (Rapid) negative (Negative) 03/12/23 19:22 All radiology interpretation(s) finalized by discharge Discharge Plan Discharge Patient Disposition: Home Clinical Impression: Hypertension, uncontrolled, Muscle strain of anterior chest wall, Acute UTI Condition: Stable Prescriptions: New nitrofurantoin monohyd/m-cryst [Macrobid] 100 mg capsule 100 mg PO Q12H 7 Days Qty: 14 0RF Rx Instructions: must administer with a meal/food No Action prednisone 5 mg tablet 5 mg PO .1-2 tab Qty: 30 0RF acetaminophen 500 mg capsule 500 mg PO Q6H PRN (Reason: Pain) tizanidine 6 mg capsule 6 mg PO BID PRN (Reason: Allergic Reaction) metoprolol succinate 50 mg tablet extended release 24 hr 50 mg PO DAILY piroxicam 20 mg capsule 20 mg PO DAILY magnesium oxide 400 mg magnesium capsule 400 mg PO DAILY hydralazine 25 mg tablet 50 mg PO BID clonidine 0.3 mg/24 hr patch weekly 1 patch transdermal .weekly Qty: 4 3RF Rx Instructions: take 0.3mg patch instead of 0.2mg patch. Do not use both together. amlodipine 10 mg tablet 10 mg PO DAILY PRN (Reason: high blood pressure) lisinopril 10 mg tablet 10 mg PO DAILY prednisone 20 mg tablet 20 mg PO TID Qty: 15 0RF Rx Instructions: 1 p.o. 3 times daily x3 days, 1 p.o. twice daily x2 days, 1 p.o. daily x2 days tizanidine 4 mg tablet 4 mg PO Q6H PRN (Reason: muscle spasticity) Qty: 20 0RF Rx Instructions: do not exceed 3 doses per 24 hrs Lomotil 2.5-0.025 mg tablet 1 tab PO BID PRN (Reason: diarrhea) Qty: 20 1RF Discharge Orders: Discharge ED (Routine); Ordered 03/12/23 Ordered By: Tacho Hedrick Referrals: Ramy Berger MD [Primary Care Provider] - Discharge Diet: Advance as tolerated Discharge Activity: Resume usual activity Patient Instructions: Opioid Safety, Pain Management Activity Restrictions/Additional Instructions: Activity Restrictions/Additional Instructions: Thank you for choosing [facility] for your healthcare needs today. Please realize that you were seen in the Emergency Department and that we are providing you with an emergency medical screening exam and this may not be a complete and all inclusive of all the testing and or medical work-up that you may need to determine your ailment or severity of your illness. It is very important that you follow-up as instructed with your Primary care provider or Specialist for additional evaluation and to discuss your medical treatment plan. You may return to the Emergency Department should you have concerns or if your condition changes or worsens in any way. Coding Level of Care Code ED Account [facility]
[2023-03-12] MEDS: cloNIDine 0.1 mg Tablet PO (19:37)
[2023-03-12 19:46] LABS: Basophils # 0.1 10^3/uL (0.0-0.1); Basophils % 0.4 %; Eosinophils # 0.1 10^3/uL (0.0-0.8); Eosinophils % 0.5 %; Hematocrit 48.2 % (36-47); Lymphocytes # 2.6 10^3/uL (0.8-4.8); Lymphocytes % 20.7 %; Mean Corpuscular HGB Conc 31.7 g/dL (30-55); Mean Corpuscular Volume 88.1 fl (85-98); Mean Platelet Volume 9.2 fL (7.4-10.4); Monocytes # 1.1 10^3/uL (0.2-0.9); Monocytes % 8.7 %; Neutrophils # 8.56 10^3/uL (1.8-7.7); Neutrophils % 69.2 %; Nucleated Red Blood Cells % 0 %; Platelet Count 394 10^3/cmm (157-399); Red Blood Count 5.47 10^6/uL (3.85-5.65); Red Cell Distribution Width 14.6 % (12.1-15.1); White Blood Count 12.37 10^3/uL (3.29-11.43)
[2023-03-12 19:57] LABS: INR 0.92 (0.8-1.2)
[2023-03-12 20:02] LABS: Alanine Aminotransferase 26 U/L (0-33); Albumin Level 4.6 g/dL (3.5-5.2); Alkaline Phosphatase 70 U/L (35-105); Anion Gap 13.6 (5-19); Aspartate Amino Transferase 28 U/L (0-32); Blood Urea Nitrogen 26 mg/dL (8-23); Carbon Dioxide 32 mmol/L (22-29); Chloride 98 mmol/L (98-107); Globulin 3.4 g/dL (1.3-4.6); Glucose 109 mg/dL (65-115); Osmolality Calculated 295 mOsm/kg (285-295); Potassium 3.6 mmol/L (3.5-5.1); Sodium 140 mmol/L (136-145); Total Bilirubin 0.6 mg/dL (0.15-1.2)
[2023-03-12 20:12] LABS: Influenza A by IFA negative (Negative); Influenza B by IFA negative (Negative); SARS Covid-2 Antigen negative (Negative)
[2023-03-12 20:13] LABS: Add Urine Microscopic? YES; Bilirubin Urine Neg (Negative); Blood Urine Neg (Negative); Glucose Urine UA Norm (Normal); Ketones Urine 1+ (Negative); Leukocyte Esterase Urine 2+ (Negative); Nitrate Urine Positive (Negative); Protein Urine Neg (Negative); Urine Appearance Hazy (CLEAR); Urine Color Yellow (Yellow); Urobilinogen Urine Norm (Negative); pH Urine 6 (5-7)
[2023-03-12 20:14] LABS: Add Urine Culture? Yes; Bacteria Urine 3+ /hpf; RBC Urine 0-4 /hpf (0-2); Squamous Epithelial Cell Urine 0-4 /hpf (0-5)
[2023-03-12] MEDS: ketorolac 30 mg/mL INJ IVP (21:04)
[2023-03-12] MEDS: nitrofurantoin SR (BID) 100 mg Capsule PO (21:04)
[2023-03-12] MEDS: hyDRALAzine 20 mg/mL INJ 1 mL 10 MG IVP (21:06)
== END 2023-03-12 21:52 | disposition home or self-care (01) ==
PROVIDERS: Emergency Provider Internal Medicine; PCP Family Medicine
DX: N39.0 Urinary tract infection, site not specified (principal); I10 Essential (primary) hypertension; S29.011A Strain of muscle and tendon of front wall of thorax, initial encounter; Z11.52 Encounter for screening for COVID-19; Z95.0 Presence of cardiac pacemaker; X58.XXXA Exposure to other specified factors, initial encounter
CPT/HCPCS: 36415; 71045; 71101; 80053; 81001; 83735; 85025; 85610; 87077; 87086; 87186; 87426; 87804; 96374; 96375; 99284; J0360; J1885

== ENCOUNTER → 2023-03-23 10:05 | Outpatient (BNVA) | payer MEDICARE, SELFPAY | PROVIDERS: PCP Family Medicine; Visit Provider Anesthesiology Pain Medicine | DX: M54.50 Low back pain, unspecified; M16.12 Unilateral primary osteoarthritis, left hip; M25.551 Pain in right hip | CPT/HCPCS: 99214 ==

== ENCOUNTER → 2023-04-21 10:11 | Outpatient (BNVA) | payer MEDICARE, SELFPAY | PROVIDERS: PCP Family Medicine; Visit Provider Anesthesiology Pain Medicine | DX: M54.9 Dorsalgia, unspecified (principal); M25.551 Pain in right hip; M16.12 Unilateral primary osteoarthritis, left hip | CPT/HCPCS: 99214 ==

== ENCOUNTER → 2023-06-09 10:08 | Outpatient (BNVA) | payer MEDICARE, SELFPAY | PROVIDERS: PCP Family Medicine; Visit Provider Internal Medicine Cardiovascular Disease | DX: I48.19 Other persistent atrial fibrillation (principal); Z95.0 Presence of cardiac pacemaker; R06.02 Shortness of breath; Z79.01 Long term (current) use of anticoagulants; I10 Essential (primary) hypertension; M45.0 Ankylosing spondylitis of multiple sites in spine | CPT/HCPCS: 93288; 99214 ==

== ENCOUNTER → 2023-08-31 11:00 | Outpatient (BNVA) | payer MEDICARE, SELFPAY | PROVIDERS: PCP Family Medicine; Visit Provider Podiatrist Foot & Ankle Surgery | DX: L84 Corns and callosities (principal); I73.9 Peripheral vascular disease, unspecified; L60.3 Nail dystrophy | CPT/HCPCS: 11055; 11721 ==